=== PATIENT | male | born 1950 | race Caucasian/White ===

== ENCOUNTER 2021-11-03 06:51 | Emergency (ER) | payer MEDICARE, BC, SELFPAY ==
--- NOTE | ~2021-11-03 | CT_ITS ---
EXAMINATION: CT CHEST WITHOUT CONTRAST CLINICAL INFORMATION: Right posterior rib pain COMPARISON: CTA chest 09/11/2019 TECHNIQUE: Multidetector volumetric CT imaging of the chest was done. Axial MIP volume rendering provided. Sagittal and coronal reformatted images were obtained. This CT examination was performed using dose optimization techniques as appropriate, variously including the following: *Automated exposure control *Adjustment of mA and/or kV according to patient size (this includes techniques or standardized protocols for targeted exams where dose is matched to indication/reason for exam; i.e. extremities or head) *Use of iterative reconstruction technique DLP: 449 mGy-cm FINDINGS: The heart is normal in size. Coronary artery calcifications are present. There is no pericardial effusion. Normal caliber thoracic aorta. Scattered prominent but nonpathologically enlarged mediastinal lymph nodes appear unchanged. No enlarged axillary lymph nodes. Central airways are patent. Lungs are adequately aerated. Some mild subpleural linear opacities posteriorly within the right upper and lower lobes are nonspecific but most suggestive of atelectasis versus scarring. There is some minimal posterior pleural thickening on the right although no pleural effusion is identified. There is no pneumothorax present. No suspicious pulmonary masses. Visualized portion of the upper abdomen demonstrate diffusely decreased liver attenuation. Moderate diffuse degenerative changes of the spine. No acute rib fracture identified. CT/CT chest wo con IMPRESSION: -No rib fracture. -Atelectasis versus scarring within the posterior right hemithorax without lobar consolidation, pleural effusion or pneumothorax. -Diffusely decreased liver attenuation suggesting hepatic steatosis. Correlation with liver enzymes recommended. Fleischner guidelines were followed.
[2021-11-03 06:55] VITALS: BP 172/100; PULSE 58; RESP 18; TEMP 37; O2SAT 96; BMI 41.9
--- NOTE | 2021-11-03 07:19 | ED_ITS ---
HPI - Back Pain/Injury General Chief Complaint: Back Pain/Injury Stated Complaint: back pain Time Seen by Provider: 11/03/21 07:07 Source: patient Mode of arrival: ambulatory Limitations: no limitations History of Present Illness MD elicited complaint: other (R posterior rib pain) Onset (ago): week(s) (2) Timing: progressively worsening Severity: severe Similar Symptoms Previously: No Quality: sharp Location: thoracic spine (not spine R posterior lateral ribs) Radiation: none Exacerbating factors: movement, coughing/sneezing and lifting Relieving factors: none Context: while lifting (heavy glass blower felt a pop in his ribs) Associated symptoms: denies other symptoms Treatments prior to arrival: other (went to urgent care center started on 2 red pills ?naprosyn and has been taking motrin without relief, has not had imaging, cannot tolerate pain any longer) Work related injury: No Related Data Previous Rx's Medication Instructions Recorded cyclobenzaprine 10 mg tablet 10 mg PO TID PRN #14 tab 11/03/21 hydrocodone 5 mg-acetaminophen 325 1 tab PO Q6H PRN #12 tab 11/03/21 mg tablet lidocaine 5 % topical kit (Lidopac) 1 appl TOPICAL DAILY PRN #1 ea 11/03/21 Allergies Allergy/AdvReac Type Severity Reaction Status Date / Time No Known Allergies Allergy Unverified 06/16/20 18:42 Review of Systems Verdana 4l Review of Systems: Verdana 4d Verdana 4d Constitutional : No Weight loss, No Fever, No Chills ENT/Mouth : No sore throat, No Rhinorrhea Eyes: No Eye Pain, No Swelling Cardiovascular : pos Chest wall Pain, pos no shortness of breath Respiratory : No Cough, No Sputum GastrointestinalGastrointestinal : no Nausea, No Vomiting, No Diarrhea, No abdominal Pain, No Hematochezia, No Melena Genitourinary : No Dysuria, No Urinary Frequency Musculoskeletal : No joint pain, No Myalgias, No Joint Swelling Skin : No Skin Lesions, No rash Neuro : No Weakness, No Numbness, No Dizziness, No Headache Psych : No Anxiety/Panic, No Depression Heme/Lymph: No Bruising, No Lymphadenopathy Endocrine : No Polyuria, No Polydipsia All other systems reviewed and are negative PMFSH Past Medical History Attestation statement: The following information was validated with the patient. Medical History HTN (hypertension) Rheumatoid arthritis Surgical History (Updated 11/03/21 @ 06:59 by Deb Bauer) History of foot surgery Stented coronary artery Social History Social History (Updated 11/03/21 @ 07:35 by Airam Rapp DO) Patient Tobacco Use Status: Current everyday Tobacco user Smoked in Last 30 Days: Yes Use of substances other than those prescribed or required for medical reasons: No Advance Directives: Yes Advance Directives Information Provided: Yes Advance Directives on File: No Physical Exam Verdana 4l Vital Signs: Verdana 4d Verdana 4d Vital Signs: Verdana 4d Verdana 4Bd Last Vital Signs Verdana 4d Steam Conditioner Filling New 4d Steam Conditioner Filling New 4d Temp 98.3 F 11/03/21 07:36 Steam Conditioner Filling New 4d Pulse 59 11/03/21 07:36 Steam Conditioner Filling New 4d Resp 20 11/03/21 07:36 BP 175/92 H 11/03/21 07:36 Pulse Ox 97 11/03/21 07:36 BMI result Body Mass Index 41.9 Appearance: Alert. Oriented X3. No acute distress. Eyes: Pupils equal, round and reactive to light. ENT: Pharynx normal. Neck: Normal inspection. Neck supple. CVS: Normal heart rate and rhythm. Pulses normal. Chest: posterior lateral upper ribs moderate ttp no crepitus felt Respiratory: No respiratory distress. Breath sounds normal. Abdomen: Soft and nontender. Back: no midline ttp Skin: Skin warm and dry. Normal skin color. Normal skin turgor. Extremities: No lower extremity edema. No calf ttp Neuro: Oriented X 3. No motor deficit. No sensory deficit. Course Course Course Narrative: no acute fractures seen - stable for DC at this time MDM - Back Pain/Injury MDM Narrative Medical decision making narrative: 71 yo male with hx of RA on prednisone and methotrexate, HTN, here with R posterior rib pain for 2 weeks getting worse felt a pop in that area - it is not back pain he has no radicular symptoms. He is taking motrin without relief and has not had imaging. At this time we did discuss he should only use tylenol OTC since he is on plavix and aspirin at home - he is aware. Will obtain CT of his chest to r/o rib fractures given chronic steroid use from RA. I do not think rib films given body habitus will provide enough information - dispo per results and findings. Discharge Plan Discharge Clinical Impression: Strain of chest wall Qualifiers: Encounter type: initial encounter Qualified Code(s): S29.011A - Strain of muscle and tendon of front wall of thorax, initial encounter Patient Disposition: Home, Self-Care Instructions: Muscle Strain (ED), Chest Wall Pain (ED) Additional Instructions: return to ED for any worsening symptoms or concerns please follow up with your primary care doctor next week you should only be taking tylenol over the counter for pain no rib fractures seen on CT scan of your chest Prescriptions: New cyclobenzaprine 10 mg tablet 10 mg PO TID PRN (Reason: muscle spasm) Qty: 14 0RF Lidopac 5 % kit 1 appl topical DAILY PRN (Reason: pain) Qty: 1 0RF hydrocodone-acetaminophen 5-325 mg tablet 1 tab PO Q6H PRN (Reason: pain) Qty: 12 0RF Referrals: Kaleb Oneal MD [Primary Care Provider] - 3 days
[2021-11-03 07:36] VITALS: BP 175/92; PULSE 59; RESP 20; TEMP 36.8; O2SAT 97
[2021-11-03] MEDS: Lidocaine 4 % Patch ADH..PATCH 1 PATCH TRANSDERMA (08:19)
== END 2021-11-03 10:17 | disposition home or self-care (01) ==
PROVIDERS: Emergency Provider Emergency Medicine; PCP Internal Medicine
DX: S29.011A Strain of muscle and tendon of front wall of thorax, initial encounter (principal); X50.9XXA Other and unspecified overexertion or strenuous movements or postures, initial encounter; Y93.29 Activity, other involving ice and snow; Y92.014 Private driveway to single-family (private) house as the place of occurrence of the external cause; Y99.9 Unspecified external cause status
CPT/HCPCS: 71250; 99284

== ENCOUNTER 2022-02-18 07:47 | Emergency (ER) | payer MEDICARE, BC, SELFPAY ==
--- NOTE | ~2022-02-18 | XR_ITS ---
EXAMINATION: XR LUMBOSACRAL SPINE CLINICAL INFORMATION: 3 weeks of ongoing pain. COMPARISON: None TECHNIQUE: Three views of the lumbosacral spine. FINDINGS: There are 5 nonrib-bearing lumbar vertebrae present. Grade 1 anterolisthesis of L4 over L5. Moderate multilevel degenerative spondylosis related changes are noted throughout the entire lumbar spine. There is straightening of the lumbar spine is present. 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 Diffuse atherosclerotic disease of the aorta and is branches. XR/XR lumbar spine 2-3V IMPRESSION: Grade 1 anterolisthesis of L4 over L5 and moderate multilevel degenerative spondylosis. Mild platyspondylia. Diffuse atherosclerotic disease of the aorta and is branches.
[2022-02-18 08:13] VITALS: BP 166/95; PULSE 66; RESP 20; TEMP 36.6; O2SAT 97; BMI 39.5
--- NOTE | 2022-02-18 10:51 | ED.GENADULT ---
HPI - General Adult General Chief complaint: Extremity Problem Stated complaint: Lower back pain/leg pain Time Seen by Provider: 02/18/22 08:52 Source: patient Mode of arrival: ambulatory Limitations: no limitations History of Present Illness HPI narrative: 71-year-old male with history of sciatica and Rheumatoid Arhtriitis presents to ED for sciatica exacerbation. Patient states left-sided back pain radiating down left leg for the past 3 weeks. Patient denies any recent trauma, any urinary/bowel incontinence, fever, chills, nausea, vomiting, abdominal pain, dysuria, hematuria, testicular pain, or flank pain. Patient states only taking Tylenol for pain. Related Data Previous Rx's Medication Instructions Recorded cyclobenzaprine 10 mg tablet 10 mg PO TID PRN #14 tab 11/03/21 hydrocodone 5 mg-acetaminophen 325 1 tab PO Q6H PRN #12 tab 11/03/21 mg tablet lidocaine 5 % topical kit (Lidopac) 1 appl TOPICAL DAILY PRN #1 ea 11/03/21 cyclobenzaprine 10 mg tablet 10 mg PO TID PRN 7 Days #21 tab 02/18/22 oxycodone 5 mg capsule 5 mg PO TID PRN 3 Days #9 cap 02/18/22 prednisone 20 mg tablet 40 mg PO DAILY 5 Days #10 tab 02/18/22 Allergies Allergy/AdvReac Type Severity Reaction Status Date / Time No Known Allergies Allergy Verified 02/18/22 08:15 Review of Systems Review of Systems: Left-sided back pain radiating down left leg Yes all other systems are reviewed and are negative ON LICENSE OF [facility] Past Medical History Medical History HTN (hypertension) Rheumatoid arthritis Surgical History (Updated 11/03/21 @ 06:59 by Deb Bauer) History of foot surgery Stented coronary artery Social History Social History (Updated 11/03/21 @ 07:35 by Airam Rapp DO) Patient Tobacco Use Status: Current everyday Tobacco user Advance Directives: No Advance Directives Information Provided: No Physical Exam ED Vital Signs: Vital Signs - 24 hr 02/18/22 08:13 Temperature 97.8 F Pulse Rate 66 Respiratory Rate 20 Blood Pressure 166/95 H Pulse Oximetry 97 BMI result Body Mass Index 39.5 Const General: cooperative, healthy appearing, comfortable, no acute distress, well developed, alert, awake and Physically active Orientation/consciousness: patient oriented x3 [facility] Head: Yes normal to inspection, Yes No palpable skull fracture present, Yes normocephalic, Yes atraumatic and No abrasion Eyes General: appearance normal, both eyes and all related structures Neck Neck: Yes normal visual inspection, Yes full ROM, Yes no lymphadenopathy, Yes no meningeal signs, Yes trachea midline, Yes supple, No anterior neck swelling and No tender Chest Chest palpation & inspection: normal inspection of the chest and normal palpation of entire chest wall Resp Effort & Inspection: normal respiratory effort and able to speak in complete sentences Auscultation: clear to auscultation bilaterally Cardio Jugular venous distension: no JVD Heart sounds: S1 normal heart sound present and S2 normal heart sound present GI Inspection: Yes normal to inspection and No abdominal wall ecchymosis Palpation (GI): Soft to palpation, not firm, nontender, no guarding and not rigid General: No CVA tenderness and Yes no CVA tenderness Back/Spine/Pelvis Back: no CVA tenderness, No CVA tenderness and No back tenderness Back/spine/pelvis image: 1. Positive for left gluteal/sciatica tenderness on palpation. Negative for any mass, erythema, ecchymosis, or deformity. Skin General skin exam: no rashes or lesions noted and elasticity normal Neuro General: patient oriented x3, gait normal, tone normal, no meningeal signs and CN's II-XI intact bilaterally Cranial nerves: Yes CN's II-XII intact bilaterally Extrem Other: Lower extremities negative for swelling, pitting edema, or calf tenderness General: Yes normal to inspection and Yes full ROM Psych Appearance: grossly normal, well kempt and not disheveled Course Course Course Narrative: Patient sent for lumbar x-ray. Reevaluation(s) Reevaluation #1: Lumbar x-ray shows lumbar radiculopathy. Negative for any fractures. Not suspecting any cauda equine a or epidural abscess. Patient given Toradol. Patient will be discharged with narcotics, muscle relaxer, and steroid. Time: 23:00 Medical Decision Making [facility] Narrative Medical decision making narrative: Lumbar radiculopathy. Sciatica exacerbation. Discharge Plan Discharge Clinical Impression: Left lumbar radiculopathy Patient Disposition: Home, Self-Care Instructions: Sciatica (ED), Lumbar Radiculopathy (ED) Additional Instructions: Your x-ray shows lumbar degenerative arthritis. Symptoms also due to sciatica. He will be discharged with pain medication, muscle relaxers, and steroids. Return to the ED for any urinary/bowel incontinence, abdominal pain, nausea, vomiting, flank pain, fever, chills, dysuria, hematuria, paralysis of lower extremities, or any other concerning symptoms. Please follow-up with your primary care provider Prescriptions: New prednisone 20 mg tablet 40 mg PO DAILY 5 Days Qty: 10 0RF oxycodone 5 mg capsule 5 mg PO TID PRN (Reason: pain) 3 Days Qty: 9 0RF Rx Instructions: side effect is drowsiness. Do not take at work or while driving. Do not take with muscle relaxers. cyclobenzaprine 10 mg tablet 10 mg PO TID PRN (Reason: muscle spasm) 7 Days Qty: 21 0RF Rx Instructions: side effect is drowsiness. Do not take at work or while driving. Do not take with oxycodone. No Action cyclobenzaprine 10 mg tablet 10 mg PO TID PRN (Reason: muscle spasm) Qty: 14 0RF Lidopac 5 % kit 1 appl topical DAILY PRN (Reason: pain) Qty: 1 0RF hydrocodone-acetaminophen 5-325 mg tablet 1 tab PO Q6H PRN (Reason: pain) Qty: 12 0RF Interventions: ED Discharge Assessment Last Done: 02/18/22 11:26 Discharge Date/Time: 02/18/22 11:27 Print Language: Moldovan
[2022-02-18] MEDS: Ketorolac Tromethamine 30 MG/ML VIAL IM (10:58)
== END 2022-02-18 11:27 | disposition home or self-care (01) ==
PROVIDERS: Emergency Provider Emergency Medicine; PCP Internal Medicine
DX: M54.16 Radiculopathy, lumbar region (principal); M54.30 Sciatica, unspecified side; M06.9 Rheumatoid arthritis, unspecified; I10 Essential (primary) hypertension
CPT/HCPCS: 72100; 96372; 99282; 99284; J1885

== ENCOUNTER 2022-08-22 16:35 | Emergency (ER) | payer MEDICARE, BC, SELFPAY ==
--- NOTE | ~2022-08-22 | XR_ITS ---
EXAMINATION: XR KNEE, RIGHT CLINICAL INFORMATION: Pain COMPARISON: None TECHNIQUE: Four views of the right knee. FINDINGS: No acute fracture or dislocation. Tricompartmental marginal osteophytes. Moderate medial tibiofemoral compartment joint space narrowing, with accompanying subchondral sclerosis. Small knee joint effusion. XR/XR knee RT 2V IMPRESSION: * No acute fracture or dislocation. * Tricompartmental degenerative changes, worst within the medial tibiofemoral compartment.
--- NOTE | ~2022-08-22 | US_ITS ---
EXAMINATION: US VENOUS ULTRASOUND WITH DOPPLER LOWER EXTREMITY, RIGHT CLINICAL INFORMATION: Calf pain with question of DVT COMPARISON: None TECHNIQUE: Ultrasound of the deep veins is performed from the hip to the calf with compression sonography and color and pulse Doppler assessment. Spectral analysis with color-flow imaging is performed. FINDINGS: There is normal venous compression and respiratory variation and augmented flow. The visualized common femoral vein, superficial femoral vein, profunda femoral vein, popliteal vein, and the trifurcation region shows no evidence of deep venous thrombosis. There is no significant popliteal fossa cyst. If the patient's symptoms persist, followup ultrasound in 5 days 7 days might be of value to exclude proximal propagation from a non-visualized calf vein. US/US venous duplex LE RT IMPRESSION: No DVT demonstrated in the right lower extremity.
[2022-08-22 16:47] VITALS: BP 177/99; PULSE 75; RESP 16; TEMP 36.6; O2SAT 97; BMI 40.3
--- NOTE | 2022-08-22 16:57 | ED.LOWEXIN ---
HPI - Extremity Injury (Lower) General Chief Complaint: Extremity Injury, Lower Stated Complaint: rheumatoid arthritis Time Seen by Provider: 08/22/22 16:47 Source: patient Mode of arrival: ambulatory Limitations: no limitations History of Present Illness HPI Narrative: A 72-year-old male came in for evaluation of right knee and right leg pain started this morning. Patient was trying to get out of bed when started to have a severe pain in the right knee and right leg, patient was not able to get out of bed then, then the pain has improved gradually to as the day wears on, 2 weeks ago patient felt a pop in his right knee as he was walking but gradually getting better, declined any lower extremity swelling, no history of DVT, no recent travel, no recent prolonged immobilization. Patient with history of rheumatoid arthritis taking Humira and methotrexate. Patient had similar presentation in the past improved by taking the steroid. Related Data Previous Rx's Medication Instructions Recorded cyclobenzaprine 10 mg tablet 10 mg PO TID PRN muscle spasm #14 11/03/21 tabs hydrocodone 5 mg-acetaminophen 325 1 tab PO Q6H PRN pain #12 tabs 11/03/21 mg tablet lidocaine 5 % topical kit (Lidopac) 1 appl topical DAILY PRN pain #1 ea 11/03/21 cyclobenzaprine 10 mg tablet 10 mg PO TID PRN muscle spasm 7 02/18/22 days #21 tabs oxycodone 5 mg capsule 5 mg PO TID PRN pain 3 days #9 caps 02/18/22 prednisone 20 mg tablet 40 mg PO DAILY 5 days #10 tabs 02/18/22 prednisone 20 mg tablet 20 mg PO BID #10 tabs 08/22/22 Allergies Allergy/AdvReac Type Severity Reaction Status Date / Time No Known Allergies Allergy Verified 02/18/22 08:15 Review of Systems Review of Systems: All other systems are reviewed and are negative Constitutional: Reports as per HPI and Reports no additional constitutional complaints Eyes: Reports as per HPI and Reports no additional eye complaints Reports system reviewed and no additional complaints, except as documented Cardiovascular: Reports as per HPI and Reports no additional cardiovascular complaints Respiratory: Reports as per HPI and Reports no additional respiratory complaints Gastrointestinal: Reports as per HPI and Reports no additional gastrointestinal complaints Genitourinary: Reports no additional female genitourinary complaints Musculoskeletal: Reports no additional musculoskeletal complaints Skin/Breast: Reports system reviewed and no additional complaints, except as docu Psychiatric: Reports no additional psychiatric complaints Endocrine: Reports no additional endocrine complaints Hematologic/Lymphatic: Reports no additional hematologic/lymphatic complaints Allergic/Immunologic: Reports no additional allergic/immunologic complaints Reports system reviewed and no additional complaints, except as documented and Reports Abnormal speech present [facility] Past Medical History Medical History HTN (hypertension) Rheumatoid arthritis Surgical History History of foot surgery Stented coronary artery Social History Social History Patient Tobacco Use Status: Current everyday Tobacco user Advance Directives: No Advance Directives Information Provided: Yes Physical Exam Vital Signs: Vital Signs: Last Vital Signs Temp 97.9 F 08/22/22 16:47 Pulse 75 08/22/22 16:47 Resp 16 08/22/22 16:47 BP 177/99 H 08/22/22 16:47 Pulse Ox 97 08/22/22 16:47 O2 Del Method 08/22/22 16:47 BMI result Body Mass Index 40.3 Vital signs have been reviewed as appeared to be correct. Blood pressure normal. Heart rate normal. Respiration rate normal. Temperature normal. Oxygen saturation normal. Appearance: Alert. Oriented X3. No acute distress. Head: Normal external exam. Normocephalic. Atraumatic. No Munoz signs noted. No raccoon eyes noted Eyes: PERRLA. EOMI. Conjunctiva and sclera normal. Eyelids normal. ENT: TM's Normal. Pharynx normal. Uvula midline. Moist mucous membranes. No trismus noted. No drooling noted. No muffled voice noted. Neck: Normal inspection. Neck supple. FROM. No adenopathy. Thyroid Normal. No meningeal signs. No neck mass noted. CVS: Normal heart rate and rhythm. Heart sound normal. No murmurs noted. Pulses normal throughout. Respiratory: No respiratory distress. Painless inspiration. Breath sounds normal. No wheezes/rales/rhonchi noted. Chest nontender. No accessory muscle usage noted or decreased air movement noted. Abdomen: Soft and nontender. Bowel sounds normal in all 4 quadrants. No distention noted. No organomegaly noted. No visible injury noted. Back: No CVA tenderness. Full range of motion noted. Skin: Skin warm and dry. Normal skin color. Normal skin turgor. No rashes/lesions/lacerations noted. Extremities: No lower extremity edema. Extremities exhibit normal range of motion. Extremities nontender. Neuro: Oriented X 3. Cranial nerve exam: II-XII are grossly intact No motor deficit. No sensory deficit. Reflexes normal. Course Course Course Narrative: Right lower extremities pain due to likely acute on chronic arthritis patient reportedly improved with the steroid in the past will start him on short course of low-dose of steroid. Medications Administered Discontinued Medications Generic Name Dose Route Start Last Admin Trade Name Freq PRN Reason Stop Dose Admin Prednisone 40 mg 08/22/22 16:57 08/22/22 17:28 Prednisone 20 Mg Tablet PO 08/22/22 16:58 40 mg ONCE ONE Administration MDM - Extremity Injury (Lower) Imaging Data Right knee x-ray: Attestation: I personally reviewed and interpreted this imaging study as follows: Radiologist's impression: *? No acute fracture or dislocation. *? Tricompartmental degenerative changes, worst within the medial tibiofemoral compartment. ? Right lower extremities venous ultrasound: Attestation: I personally reviewed and interpreted this imaging study as follows: Radiologist's impression: No DVT Discharge Plan Discharge Clinical Impression: Acute leg pain, Flare of rheumatoid arthritis Patient Disposition: Home, Self-Care Instructions: Leg Pain (ED) Prescriptions: New prednisone 20 mg tablet 20 mg PO BID Qty: 10 0RF No Action cyclobenzaprine 10 mg tablet 10 mg PO TID PRN (Reason: muscle spasm) Qty: 14 0RF Lidopac 5 % kit 1 appl topical DAILY PRN (Reason: pain) Qty: 1 0RF hydrocodone-acetaminophen 5-325 mg tablet 1 tab PO Q6H PRN (Reason: pain) Qty: 12 0RF prednisone 20 mg tablet 40 mg PO DAILY 5 Days Qty: 10 0RF oxycodone 5 mg capsule 5 mg PO TID PRN (Reason: pain) 3 Days Qty: 9 0RF Rx Instructions: side effect is drowsiness. Do not take at work or while driving. Do not take with muscle relaxers. cyclobenzaprine 10 mg tablet 10 mg PO TID PRN (Reason: muscle spasm) 7 Days Qty: 21 0RF Rx Instructions: side effect is drowsiness. Do not take at work or while driving. Do not take with oxycodone. Referrals: Physician,Unknown J [Primary Care Provider] -
--- OUTSIDE RECORDS SUMMARY | 2022-08-22 17:03 | XMS_ITS | Continuity of Care Document ---
:1950 Author Organization [facility] Address [address] [place] [address]- Care Team Providers Name Role Phone Kaleb Oneal MD Primary Care Physician [place] [facility] [place] 10/04/[address] [address]- Encounter Diagnosis Pneumonia (Final) - 09/29/20 Pneumonia (Final) - 09/30/20 Discharge Disposition: A-D/C AMA Attending Physician: Yajaira Dorantes MD Admitting Physician: Kayla Dover MD Referring Physician: Not on Staff, Referring MD Allergies, Adverse Reactions, Alerts Substance Reaction Severity Status NKA Active Medications aspirin 81 mg oral delayed release tablet 81 mg, By Mouth, Daily, # 30 tablet, Refills 0, Tot. Refills 0, Maintenance, 06/14/20 15:37:00 EDT, Route to Pharmacy Electronically, [facility], 168, cm, 06/14/20 13:45:00 EDT, Height, 108, kg, 06/12/20 0:47:00 EDT, Dry Weight Start Date: 06/14/20 Status: Orderedfolic acid 1 mg oral tablet 1 mg, 1, tablet, By Mouth, Daily, # 30 tablet, Refills 0, Maintenance, 09/30/19 7:29:00 EST Start Date: 09/30/19 Status: OrderedHumira Pen 40 mg/0.8 mL subcutaneous solution 0 Refills, Maintenance, 09/30/19 7:29:00 EST Start Date: 09/30/19 Status: OrderedlevoFLOXacin 750 mg oral tablet 1 tablet = 750 mg, By Mouth, Every 24 hours, for 7 days, # 7 tablet, 0 Refills, Acute 10/11/20 11:07:00 EST, 10/04/20 11:07:00 EST, Tablet, [facility], Partial fill upon patient request if the prescription is for a schedule II opioid butch... Start Date: 10/04/20 Stop Date: 10/11/20 Status: OrderedLipitor 80 mg oral tablet 1 tablet = 80 mg, By Mouth, Daily at bedtime, # 30 tablet, 0 Refills, Maintenance, 06/14/20 15:37:00EDT, Tablet, [facility], 168, cm, 06/14/20 13:45:00 EDT, Height, 108, kg, 06/12/20 0:47:00 EDT, Dry Weight Start Date: 06/14/20 Status: Orderedmethotrexate 2.5 mg oral tablet 6 tablet = 15 mg, By Mouth, Every 7 days, 0 Refills, Maintenance, 09/30/19 7:28:00 EST Start Date: 09/30/19 Status: Orderedmetoprolol 50 mg oral tablet, extended release 50 mg, 1, tablet, By Mouth, Daily, # 30 tablet, Refills 0, Tot. Refills 0, Maintenance, 06/14/20 15:37:00 EDT, Route to Pharmacy Electronically, [facility], 168, cm, 06/14/20 13:45:00 EDT, Height, 108, kg, 06/12/20 0:47:00 EDT, Dry Weight Start Date: 06/14/20 Status: Orderedmetoprolol 50 mg oral tablet, extended release 50 mg, XL Tablet, By Mouth, 10/04/20 9:00:00 EST Start Date: 10/04/20 Stop Date: 10/04/20 Status: Completedomeprazole 20 mg oral enteric coated capsule 1 capsule = 20 mg, By Mouth, Daily, # 30 capsule, 0 Refills, Maintenance, 09/30/19 7:29:00 EST, EC Capsule Start Date: 09/30/19 Status: Orderedticagrelor 90 mg oral tablet 1 tablet = 90 mg, By Mouth, 2 times a day, # 60 tablet, 0 Refills, Maintenance, 06/14/20 15:37:00 EDT, Tablet, [facility], 168, cm, 06/14/20 13:45:00 EDT, Height, 108, kg, 06/12/20 0:47:00 EDT, Dry Weight Start Date: 06/14/20 Status: OrderedTylenol 325 mg oral tablet 975 mg, 3, tablet, By Mouth, 3 times a day, PRN, Temperature Greater than 100.5, Refills 0, Maintenance, as needed for fever, 10/04/20 11:13:00 EST, Partial fill upon patient request if the prescription is for a schedule II opioid drug. 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 GERD (gastroesophageal reflux Active disease)(Confirmed) Hyperlipidemia(Confirmed) Active Hypertension(Confirmed) Active Rheumatoid arthritis(Confirmed) Active Results Orders for Microbiology Reports Name Date Sputum Culture w/ Gram Smear 10/02/20 Blood Culture 09/29/20 Blood Culture #2 09/29/20 Microbiology Reports TEST:Sputum Culture STATUS:Auth (Verified) BODY SITE: SOURCE:EXPECT COLLECTED DATE/TIME:10/02/20 12:15 AMSputum Culture SPECIMEN DESCRIPTION : EXPECTORATED SPUTUM SPECIAL REQUESTS : NONE GRAM STAIN : 4+ POLYMORPHONUCLEAR LEUKOCYTES 1+ SQ.EPITHELIAL CELLS 3+ GRAM POSITIVE RODS 1+ GRAM POSITIVE COCCI CULTURE : 3+ NORMAL TANIA REPORT STATUS : FINAL 10/04/2020TEST:Blood Culture STATUS:Auth (Verified) BODY SITE: SOURCE:Blood COLLECTED DATE/TIME:09/29/20 4:36 PMBlood Culture SPECIMEN DESCRIPTION : BLOOD LAC SPECIAL REQUESTS : NONE CULTURE : NO GROWTH 5 DAYS. REPORT STATUS : FINAL 10/04/2020TEST:Blood Culture, Second Order STATUS:Auth (Verified) BODY SITE: SOURCE:Blood COLLECTED DATE/TIME:09/29/20 4:36 PMBlood Culture, Second Order SPECIMEN DESCRIPTION : BLOOD RAC SPECIAL REQUESTS : NONE CULTURE : NO GROWTH 5 DAYS. REPORT STATUS : FINAL 1Radiology Reports Exam Date Time Procedure Performing Provider Status 10/03/20 3:12 AM Ribs W/ PA Chest Left Hope Reed; Auth ( Verified) Notes:(Ribs W/ PA Chest Left) Reason For Exam: PainRESULT: Ribs W/ PA Chest Left Ribs W/ PA Chest Left Reason: Pain; Clinical Question(s): Fracture; Order Comment: Pt felt pop and heard pop with coughing, r o rib fx's COMPARISON: Multiple prior chest x-rays most recent 09/29/2020. FINDINGS: PA chest x-ray, 3 views of the left ribs. LINES AND TUBES: None. LUNGS AND PLEURA: Diminished lung volumes with developing consolidative opacity in the posterior right lower lung field. Left lung remains relatively clear. No effusion or pneumothorax. HEART, MEDIASTINUM AND RIYA: Heart remains mildly enlarged. BONES: No fractures or bone lesions. SOFT TISSUES: Normal. IMPRESSION: No acute fracture identified. Right lower lobe infiltrate versus atelectasis. WSN: [id number] Ordering Physician: Sinai Merlos Dictated By: Fady Roger MD Dictated Date/Time: 10/03/20 8:22 am Reviewed By: Fady Roger MD Signed By: Fady Roger MD Signed Date/Time: 10/03/20 8:22 am Transcribed By: THERON Transcribed Date/Time: 10/03/20 8:20 am Exam Date Time Procedure Performing Provider Status 09/29/20 4:27 PM Chest Portable Sandy Madera; Auth (Verifi ed) Notes:(Chest Portable) Reason For Exam: Shortness of BreathRESULT: Chest Portable Chest Portable HX OF PRESENT ILLNESS: pt complaining of fever, chills, and SOB x4 days Reason: Shortness of Breath Clinical Question(s): CHF COMPARISON: 06/11/2020 FINDINGS: LINES AND TUBES: None. LUNGS AND PLEURA: New hazy airspace opacity in the lateral left lower lung. Low lung volumes with mild basilar atelectasis. No pleural effusion. No pneumothorax. HEART, MEDIASTINUM AND RIYA: Heart is normal in size. Normal upper mediastinal and hilar contour. BONES AND SOFT TISSUES: No acute abnormality. IMPRESSION: New left lower lung airspace opacity is concerning for pneumonia. I have personally reviewed the images and I agree with this report. WSN: [id number] Ordering Physician: Neo Mott Dictated By: Salomon Gonsalez DO Dictated Date/Time: 09/29/20 4:39 pm Reviewed By: Yossi Barlow MD Signed By: Yossi Barlow MD Signed Date/Time: 09/29/20 4:44 pm Transcribed By: THERON Transcribed Date/Time: 09/29/20 4:36 pm Vital Signs Most recent to oldest [Reference 1 2 3 Range]: Height 167.64 cm 167.64 cm 167.64 cm (10/04/20 9:53 AM) (10/04/20 3:44 AM) (10/03/20 8:18 P M) Oxygen Saturation [94-100 %] 96 % 94 % 100 % (10/04/20 9:53 AM) (10/04/20 3:44 AM) (10/03/20 8:18 P M) Pulse Rate [55-90 bpm] 102 bpm 102 bpm 87 bpm *H* *H* (10/04/20 3:44 AM) (10/04/20 9:53 AM) (10/04/20 8:20 AM) Blood Pressure [90-138/55-84 mm 142/82 mm Hg 142/80 mm Hg 143/82 mm Hg Hg] *H* *H* *H* (10/04/20 9:53 AM) (10/04/20 8:20 AM) (10/04/20 8:20 A M) Respiratory Rate [16-30 br/min] 20 br/min 16 br/min 23 br/min (10/04/20 9:53 AM) (10/04/20 9:20 AM) (10/04/20 3:44 A M) Temperature [96.8-100.4 DegF] 99.2 DegF 99.1 DegF 98 .9 DegF (10/04/20 9:53 AM) (10/04/20 3:44 AM) (10/03/20 8:18 P M) Liters per Minute 2 L/min 2 L/min 2 L/min (10/04/20 3:44 AM) (10/03/20 8:18 PM) (10/03/20 1:00 A M) Mode of Delivery (Oxygen) Room air Nasal cannula Nasal cannula (10/04/20 9:53 AM) (10/04/20 3:44 AM) (10/03/20 8:18 P M) Blood pressure sites Arm, right Arm, right Arm, right (10/04/20 9:53 AM) (10/04/20 3:44 AM) (10/03/20 8:18 P M) Temperature Route Axillary Oral Oral (10/04/20 9:53 AM) (10/04/20 3:44 AM) (10/03/20 8:18 P M) Social History Social History Type Response Smoking Status 10 or more cigarettes (1/2 p ack or more)/day in last 30 days; Tobacco user in household: Yes; Other: He was able to quit smoking for 2 times ( 3 months, 5-10 years). Most recently stopped Sep to November.; entered on: 06/12/20 Sex
--- OUTSIDE RECORDS SUMMARY | 2022-08-22 17:04 | XMS_ITS | Continuity of Care Document ---
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 Refills 0, Maintenance, 06/14/20 15:37:00 EDT, Route to Pharmacy Electronically, [facility], 168, cm, 06/14/20 13:45:00 EDT, Height, 108, kg, 06/12/20 0:47:00 EDT, Dry Weight Start Date: 06/14/20 Status: Orderedfolic acid 1 mg oral tablet 1 mg, 1, tablet, By Mouth, Daily, # 30 tablet, Refills 0, Maintenance, 09/30/19 7:29:00 EST Start Date: 09/30/19 Status: OrderedHumira Pen 40 mg/0.8 mL subcutaneous solution 0 Refills, Maintenance, 09/30/19 7:29:00 EST Start Date: 09/30/19 Status: OrderedLipitor 80 mg oral tablet 1 tablet = 80 mg, By Mouth, Daily at bedtime, # 30 tablet, 0 Refills, Maintenance, 06/14/20 15:37:00EDT, Tablet, [facility], 168, cm, 06/14/20 13:45:00 EDT, [...] 06/14/20 15:37:00 EDT, Route to Pharmacy Electronically, [facility], 168, cm, 06/14/20 13:45:00 EDT, Height, 108, kg, 06/12/20 0:47:00 EDT, Dry Weight Start Date: 06/14/20 Status: Orderedomeprazole 20 mg oral enteric coated capsule 1 capsule = 20 mg, By Mouth, Daily, # 30 capsule, 0 Refills, Maintenance, 09/30/19 7:29:00 EST, EC Capsule Start Date: 09/30/19 Status: Orderedticagrelor 90 mg oral tablet 1 tablet = 90 mg, By Mouth, 2 times a day, # 60 tablet, 0 Refills, Maintenance, 06/14/20 15:37:00 EDT, Tablet, [facility], 168, cm, 06/14/20 13:45:00 EDT, Height, 108, kg, 06/12/20 0:47:00 EDT, Dry Weight Start Date: 06/14/20 Status: Orderedvalsartan 160 mg oral tablet TAKE 1 AND 1/2 TABLETS DAILY BY MOUTH Start Date: 06/12/20 Status: Ordered Problem List Diagnosis Diagnosis Type Effective Dates Health Status Clinical In formant Service Triple vessel Discharge 06/14/20 Non-Specified coronary artery Diagnosis disease AP (angina Discharge 06/14/20 Non-Specified pectoris) Diagnosis Results Radiology Reports Exam Date Time Procedure Performing Provider Status 06/11/20 9:34 PM Chest 2 Views Frontal and Lat Winnie Abebe; Lia (Verified) Notes:(Chest 2 Views Frontal and Lat) Reason For Exam: Chest Pain;Other:RESULT: Chest 2 Views Frontal and Lat Chest 2 Views Frontal and Lat Hx of Present Illness: chest pain x 1 week intermittent seen by PCP; Reason: Other:; Chest Pain; Clinical Question(s): CHF COMPARISON: 09/29/2019. FINDINGS: LINES AND TUBES: None. LUNGS AND PLEURA: Clear lungs. Normal pulmonary vascularity. Trace right pleural effusion. No left pleural effusion. No pneumothorax. HEART, MEDIASTINUM AND RIYA: Heart is normal in size. Aorta is somewhat tortuous. BONES AND SOFT TISSUES: No acute abnormality. IMPRESSION: Trace right pleural effusion. WSN: [id number] Ordering Physician: Robyn Mota Dictated By: David Gonsalez MD Dictated Date/Time: 06/11/20 9:39 pm Reviewed By: David Gonsalez MD Signed By: David Gonsalez MD Signed Date/Time: 06/11/20 9:39 pm Transcribed By: THERON Transcribed Date/Time: 06/11/20 9:38 pm Vital Signs Most recent to oldest 1 2 3 [Reference Range]: Height 168 cm 168 cm 168 cm (06/14/20 1:45 PM) (06/14/20 8:26 AM) (06/14/20 1:5 7 AM) Weight 110.3 kg 108 kg 108 kg (06/14/20 6:26 AM) (06/12/20 9:17 AM) (06/12/20 12: 47 AM) Oxygen Saturation 96 % 95 % 96 % [94-100 %] (06/14/20 1:45 PM) (06/14/20 8:26 AM) (06/14/20 1:5 7 AM) Pulse Rate [55-90 bpm] 66 bpm 63 bpm 63 bpm (06/14/20 1:45 PM) (06/14/20 10:18 AM) (06/14/20 8: 26 AM) Body Mass Index 38.27 [18.5-24.99] *>HHI* (06/12/20 12:47 AM) Blood Pressure 150/96 mm Hg 139/81 mm Hg 139/81 mm Hg [90-138/55-84 mm Hg] *H* *H* *H* (06/14/20 1:45 PM) (06/14/20 10:11 AM) (06/14/20 8: 26 AM) Respiratory Rate [16-30 19 br/min 21 br/min 16 br/mi n br/min] (06/14/20 1:45 PM) (06/14/20 8:26 AM) (06/14/20 1:5 7 AM) Temperature [96.8-100.4 97.8 DegF 97.9 DegF 97.4 Deg F DegF] (06/14/20 1:45 PM) (06/14/20 8:26 AM) (06/14/20 1:5 7 AM) Mode of Delivery Room air Room air Room air (Oxygen) (06/14/20 1:45 PM) (06/14/20 8:26 AM) (06/14/20 1:5 7 AM) Blood pressure sites Arm, left Arm, left Arm, left (06/14/20 1:45 PM) (06/14/20 8:26 AM) (06/14/20 1:5 7 AM) Temperature Route Temporal Temporal Temporal (06/14/20 1:45 PM) (06/14/20 8:26 AM) (06/14/20 1:5 7 AM) Dry Weight 108 kg (06/12/20 12:47 AM) Weight Obtained Via Bed scale Patient/family stated (06/14/20 6:26 AM) (06/12/20 12:47 AM) Dry Weight Obtained Via Patient/family stated (06/12/20 12:47 AM) Social History Social History Type Response Smoking Status 10 or more cigarettes (1/2 p ack or more)/day in last 30 days; Tobacco user in household: Yes; Other: He was able to quit smoking for 2 times ( 3 months, 5-10 years). Most recently stopped Sep to November.; entered on: 06/12/20 Sex
--- OUTSIDE RECORDS SUMMARY | 2022-08-22 17:04 | XMS_ITS | Continuity of Care Document ---
:1950 Author Organization [facility] Address [address] [place] [id number]- Care Team Providers Name Role Phone Kimmy CLARKE, Kaleb Primary Care Physician Encounter [facility] [place] Date(s): 09/29/19 - 10/02/[address] [address]- [facility] Encounter Diagnosis Pneumonia (Final) - 09/29/19 Hyponatremia (Final) - 09/29/19 Discharge Disposition: A-D/C Home Attending Physician: Prmio Elliott MD Admitting Physician: Cruz Mcdowell DO Referring Physician: Not on Staff, Referring MD Allergies, Adverse Reactions, Alerts Substance Reaction Severity Status NKA Active Medications Avelox 400 mg oral tablet 1 tablet = 400 mg, By Mouth, Daily, for 4 days, # 4 tablet, 0 Refills, Acute 10/06/19 10:45:00 EST, 10/02/19 10:45:00 EST, Tablet, [id number], 168, cm, 10/02/19 8:12:00 EST, Height, 103.4, kg, 09/30/19 22:43:00 EST, Dry Weight Start Date: 10/02/19 Stop Date: 10/06/19 Status: Orderedfolic acid 1 mg oral tablet 1 mg, 1, tablet, By Mouth, Daily, # 30 tablet, Refills 0, Maintenance, 09/30/19 7:29:00 EST Start Date: 09/30/19 Status: OrderedHumira Pen 40 mg/0.8 mL subcutaneous solution 0 Refills, Maintenance, 09/30/19 7:29:00 EST Start Date: 09/30/19 Status: Orderedmethotrexate 2.5 mg oral tablet 0 Refills, Maintenance, 09/30/19 7:28:00 EST Start Date: 09/30/19 Status: Orderedomeprazole 20 mg oral enteric coated capsule 1 capsule = 20 mg, By Mouth, Daily, # 30 capsule, 0 Refills, Maintenance, 09/30/19 7:29:00 EST, EC Capsule Start Date: 09/30/19 Status: Orderedoseltamivir 75 mg oral capsule 1 capsule = 75 mg, By Mouth, 2 times a day, for 3 days, # 6 capsule, 0 Refills, Acute 10/05/19 10:45:00 EST, 10/02/19 10:45:00 EST, Capsule, [id number], 168, cm, 10/02/19 8:12:00 EST, Height, 103.4, kg, 09/30/19 22:43:00 EST, Dry Weight Start Date: 10/02/19 Stop Date: 10/05/19 Status: Ordered Results Radiology Reports Exam Date Time Procedure Performing Provider Status 09/29/19 7:05 PM Chest Portable Melissa Tai; Lia (Edmond antonio) Notes:(Chest Portable) Reason For Exam: dyspnea;Other:RESULT: Chest Portable Chest Portable AP semiupright at 1843 hours Reason: Other:; dyspnea; Clinical Question(s): CHF COMPARISON: None. FINDINGS: LINES AND TUBES: None. LUNGS AND PLEURA: Low lung volumes. Mild interstitial prominence of the mid to lower lungs. Small right pleural effusion. No pneumothorax. HEART, MEDIASTINUM AND RIYA: Heart is normal in size. Aorta is mildly calcified. BONES AND SOFT TISSUES: No acute abnormality. IMPRESSION: Suspect mild pulmonary edema pattern with small right pleural effusion. WSN: [id number] Dictated By: César Sherwood DO Dictated Date/Time: 09/29/19 7:09 pm Reviewed By: César Sherwood DO Signed By: César Sherwood DO Signed Date/Time: 09/29/19 7:09 pm Transcribed By: THERON Transcribed Date/Time: 09/29/19 7:08 pm Vital Signs Most recent to oldest 1 2 3 [Reference Range]: Height 168 cm 168 cm 168 cm (10/02/19 8:12 AM) (10/01/19 8:21 PM) (10/01/19 8:20 A M) Weight 103.4 kg (09/30/19 6:42 PM) Oxygen Saturation [94-100 %] 96 % 96 % 96 % (10/02/19 8:12 AM) (10/01/19 8:21 PM) (10/01/19 8:20 A M) Pulse Rate [55-90 bpm] 62 bpm 72 bpm 87 bpm (10/02/19 8:12 AM) (10/01/19 8:21 PM) (10/01/19 8:20 A M) Body Mass Index [18.5-24.99] 36.64 *>HHI* (09/30/19 6:42 PM) Blood Pressure [90-138/55-84 124/89 mm Hg 104/69 mm Hg 118 /80 mm Hg mm Hg] (10/02/19 8:12 AM) (10/01/19 8:21 PM) (10/01/19 8:20 A M) Respiratory Rate [16-30 18 br/min 18 br/min 18 br/mi n br/min] (10/02/19 8:12 AM) (10/01/19 8:21 PM) (10/01/19 8:20 A M) Temperature [96.8-100.4 97.4 DegF 98.7 DegF 98.7 Deg F DegF] (10/02/19 8:12 AM) (10/01/19 8:21 PM) (10/01/19 8:20 A M) Liters per Minute 2 L/min 2 L/min 2 L/min (09/30/19 4:57 PM) (09/30/19 12:09 PM) (09/30/19 8:47 AM) Mode of Delivery (Oxygen) Room air Room air Room a ir (10/02/19 8:12 AM) (10/01/19 8:21 PM) (10/01/19 8:20 A M) Blood pressure sites Arm, left Arm, right Arm, left (10/02/19 8:12 AM) (10/01/19 8:21 PM) (10/01/19 8:20 A M) Temperature Route Oral Oral Oral (10/02/19 8:12 AM) (10/01/19 8:21 PM) (10/01/19 8:20 A M) Dry Weight 103.4 kg (09/30/19 6:42 PM) Sensory deficits Other: wears glasses (09/30/19 6:42 PM) Mobility assistance Independent (09/30/19 6:42 PM)
[2022-08-22] MEDS: predniSONE 20 MG TABLET 40 MG PO (17:28)
== END 2022-08-22 18:57 | disposition home or self-care (01) ==
PROVIDERS: Emergency Provider Emergency Medicine
DX: M06.9 Rheumatoid arthritis, unspecified (principal); M79.604 Pain in right leg; R60.0 Localized edema; Z79.899 Other long term (current) drug therapy
CPT/HCPCS: 73560; 93971; 99282; 99284

== ENCOUNTER 2024-05-12 14:28 | Emergency (ER) | payer MEDICARE, BC, SELFPAY ==
--- NOTE | ~2024-05-12 | CT_ITS ---
EXAMINATION: CT Chest, Abdomen, and Pelvis CLINICAL INFORMATION: Fall with right-sided chest and abdominal pain COMPARISON: None TECHNIQUE: Helical computed tomography was performed from the inferior neck through the pubic symphysis after administration of 85 mL of Omnipaque 350 intravenous contrast. Multiplanar reconstructions are available for interpretation. All CT exams at this location are performed using dose optimization techniques as appropriate to a performed exam including at least one of the following: * Automated exposure control * Adjustment of the mA and/or kV according to patient size (this includes techniques or standardized protocols for targeted exams where dose is matched to indication / reason for exam; i/e/ extremities or head) * Use of iterative reconstructive technique Total DLP is 1390 mGy*cm. FINDINGS: Lungs: Linear areas of atelectasis seen in the bilateral lung bases. No focal opacity. Pleura: Focal area of pleural thickening consistent with reactive changes along the right anterolateral chest wall There is no pleural effusion. There is no pneumothorax. Mediastinum/Mary: No mediastinal fluid or hematoma. Cardiovascular: The heart is globally normal in size. The thoracic aorta is normal in course and caliber. The main pulmonary artery is normal in caliber. There is no pericardial effusion or pericardial thickening. Coronary calcifications are present. Liver: Liver is decreased in density consistent with hepatic steatosis. No focal lesions. No evidence of acute traumatic injury Gallbladder and bile ducts: The gallbladder is normal. No intrahepatic or extrahepatic biliary ductal dilatation. Spleen: Normal in size and attenuation. Pancreas: Unremarkable. Adrenal glands: Unremarkable. Right kidney: The right kidney is normal. There is no hydronephrosis or hydroureter. Left kidney: The left kidney is normal. There is no hydronephrosis or hydroureter. Lymph nodes: There is no lymphadenopathy in the abdomen or pelvis. Gastrointestinal tract: The stomach, small, and large bowel are normal in course and caliber. The appendix is identified and is within normal limits. Diverticula seen within the sigmoid colon without evidence of acute diverticulitis Urinary bladder: The bladder is normal. Pelvic organs: The prostate is unremarkable. Vasculature: The abdominal aorta is normal in course and caliber. Diffuse atherosclerotic wall calcifications seen in the abdominal aorta and iliac arteries. Additional findings: There is no intraperitoneal free air or fluid. Soft tissues: Unremarkable. Osseous structures: Acute nondisplaced fractures are seen along the right anterolateral fourth, fifth, sixth, seventh and eighth ribs. No acute fractures in the abdomen and pelvis. Degenerative disc disease seen in the thoracic and lumbar spine. CT/CT abdomen pelvis w IV con IMPRESSION: 1. Acute nondisplaced fractures of the right anterolateral fourth through eighth ribs. No pneumothorax. 2. No acute process in the abdomen and pelvis. 3. Hepatic steatosis. 4. Diverticulosis.
--- NOTE | ~2024-05-12 | CT_ITS ---
EXAMINATION: CT HEAD WITHOUT CONTRAST CT CERVICAL SPINE WITHOUT CONTRAST CLINICAL INFORMATION: Fall with head injury and neck injury COMPARISON: None. TECHNIQUE: Contiguous axial imaging was performed from the skull base to vertex without intravenous administration of contrast. In addition, helical noncontrast CT imaging was acquired through the cervical spine and source images were reviewed along with axial reconstructions and sagittal and coronal MPRs. All CT exams at this location are performed using dose optimization techniques as appropriate to a performed exam including at least one of the following: * Automated exposure control * Adjustment of the mA and/or kV according to patient size (this includes techniques or standardized protocols for targeted exams where dose is matched to indication / reason for exam; i/e/ extremities or head) * Use of iterative reconstructive technique DLP: 1701 mGy-cm FINDINGS: HEAD: No intracranial mass, hemorrhage, or midline shift is visualized. Periventricular and subcortical white matter changes seen consistent mild chronic microvascular ischemic disease. Generalized volume loss is seen. Ventricles are prominent in size due to underlying atrophy. No extra-axial collections are identified. The paranasal sinuses are well aerated. CERVICAL SPINE: There is no evidence of acute cervical spine fracture. Vertebral body height and alignment is well maintained. No pre- or paravertebral soft tissue abnormality is identified. Degenerative changes with disc space narrowing and osteophyte formation is seen from C3 through C7. Posterior facet joint are well-maintained. Limited assessment of the lung apices is unremarkable. CT/CT cervical spine wo IV con IMPRESSION: 1. No acute intracranial pathology. Mild chronic changes. 2. No CT evidence of acute cervical spine fracture or traumatic subluxation. Diffuse degenerative disc disease
--- NOTE | 2024-05-12 14:31 | ECG_ITS ---
Test Reason : fall, chest pain Blood Pressure : / mmHG Vent. Rate : 083 BPM Atrial Rate : 083 BPM P-R Int : 144 ms QRS Dur : 084 ms QT Int : 376 ms P-R-T Axes : 024 014 025 degrees QTc Int : 441 ms Normal sinus rhythm Normal ECG When compared with ECG of 11-SEP-2019 06:21, No significant change was found Referred By: Alesia Donahue Electronically Signed By:SARAH JOHNSON
[2024-05-12 14:42] VITALS: BP 140/87; PULSE 89; RESP 19; TEMP 36.6; O2SAT 97; BMI 40.3
--- NOTE | 2024-05-12 14:42 | ED.FALL ---
HPI - Fall General Chief Complaint: Fall Stated Complaint: Fall/Diff breathing chest pain Time Seen by Provider: 05/12/24 15:30 Related Data Previous Rx's ?Medication ?Instructions ?Recorded cyclobenzaprine 10 mg tablet 10 mg PO TID PRN muscle spasm #14 11/03/21 tabs hydrocodone 5 mg-acetaminophen 325 1 tab PO Q6H PRN pain #12 tabs 11/03/21 mg tablet lidocaine 5 % topical kit (Lidopac) 1 appl topical DAILY PRN pain #1 ea 11/03/21 cyclobenzaprine 10 mg tablet 10 mg PO TID PRN muscle spasm 7 02/18/22 days #21 tabs oxycodone 5 mg capsule 5 mg PO TID PRN pain 3 days #9 caps 02/18/22 prednisone 20 mg tablet 40 mg (2 x 20 mg) PO DAILY 5 days 02/18/22 #10 tabs prednisone 20 mg tablet 20 mg PO BID #10 tabs 08/22/22 Allergies Allergy/AdvReac Type Severity Reaction Status Date / Time No Known Allergies Allergy Verified 05/12/24 14:43 [facility] Past Medical History Medical History HTN (hypertension) Rheumatoid arthritis Surgical History History of foot surgery Stented coronary artery Social History Social History Patient Tobacco Use Status: Current everyday Tobacco user Advance Directives: Yes Advance Directives Information Provided: Yes Advance Directives on File: No Do you have a plan to hurt others: No Plan Physical Exam Vital Signs: Vital Signs: Last Vital Signs Temp 98.2 F 05/12/24 19:38 Pulse 72 05/12/24 19:38 Resp 16 05/12/24 19:38 BP 156/87 H 05/12/24 19:38 Pulse Ox 95 05/12/24 19:38 O2 Del Method Room Air 05/12/24 19:38 BMI result Body Mass Index 40.3 Course Course Course Narrative: This is a Rapid Medical Examination (RME) performed by Maribel Donahue PA-C in triage. Full HPI, ROS, assessment and treatment plan per primary provider in the Main ED. 74-year-old male with a history of RA, hypertension, CAD s/p stent on DAPT, COPD, who presents to the ER for evaluation of right-sided chest pain after he slipped and fell 5 ft off of a pool deck onto the cement on his right side. Denies hitting his head or losing consciousness. He is on anticoagulation. Hit his right chest wall with the fall and has been having severe shortness of breath and pain since. Difficulty taking a deep breath. Lung sounds are auscultated at the apex of the right side but he has a hard time taking a deep breath. Appears very uncomfortable in triage. Sats are in the mid 90s. Plan: EKG, labs, CT scan given high clinical suspicion for rib fracture. To go to treatment room now Reevaluation(s) Reevaluation #1: Dr. Bernardo was the primary provider for this patient, see his note for full evaluation and treatment plan Medications Administered Discontinued Medications Generic Name Dose Route Start Last Admin Trade Name Freq PRN Reason Stop Dose Admin Fentanyl 50 mcg 05/12/24 18:51 05/12/24 19:18 Fentanyl Citrate/Pf 100 Mcg/2 Ml Vial IVPUSH 05/12/24 18:52 50 mcg ONCE ONE Administration Protocol Fentanyl 50 mcg 05/12/24 20:15 05/12/24 20:42 Fentanyl Citrate/Pf 100 Mcg/2 Ml Vial IVPUSH 05/12/24 20:16 50 mcg ONCE ONE Administration Protocol Iohexol 100 ml 05/12/24 16:22 05/12/24 16:22 Iohexol 350 Mg/Ml 100 Ml Infus..Btl IV 05/12/24 16:23 85 ml ONCE ONE Administration Morphine Sulfate 4 mg 05/12/24 15:27 05/12/24 15:39 Morphine Sulfate 4 Mg/Ml Cartridge IVPUSH 05/12/24 15:28 4 mg ONCE ONE Administration Protocol Medical Decision Making Lab Data 05/12/24 15:15 05/12/24 15:15 Labs: Lab Results 05/12/24 Range/Units 15:15 WBC 12.1 H (4.8-10.8) X10*3/uL RBC 4.59 L (4.60-5.80) X10*6/uL Hgb 15.2 (14.0-18.0) g/dl Hct 44.1 (42.0-52.0) % MCV 96.1 (80.0-98.0) fL MCH 33.1 H (27.0-33.0) pg MCHC 34.5 (31.0-36.0) g/dl RDW 13.9 (11.0-16.0) % Plt Count 260 (160-400) X10*3/uL MPV 9.6 (9.4-12.4) fL Immature Gran % (Auto) 0.7 H (0.0-0.4) % Neut % (Auto) 76.7 H (45-73) % Lymph % (Auto) 13.0 L (20-40) % [place] % (Auto) 8.0 (2-11) % Eos % (Auto) 1.2 (0-4) % Baso % (Auto) 0.4 (0-2) % Lymph # (Auto) 1.6 (1.2-4.9) X10*3/uL [place] # (Auto) 1.0 (0.1-1.2) X10*3/uL Eos # (Auto) 0.2 (0.0-0.4) X10*3/uL Baso # (Auto) 0.1 (0.0-0.2) X10*3/uL Abs Immat Gran (auto) 0.09 H (0.00-0.03) X10*3/uL Absolute Neuts (auto) 9.3 H (2.0-8.3) x10*3/uL Absolute Nucleated RBC 0.000 (0.0-0.012) X10*3/uL Nucleated RBC % (auto) 0.0 (0.0-0.2) /100WBC Sodium 138 (135-145) mmol/L Potassium 4.2 (3.3-5.1) mmol/L Chloride 105 (96-108) mmol/L Carbon Dioxide 21 L (22-29) mmol/L Anion Gap 16 (12-20) BUN 15 (9-16) mg/dL Creatinine 1.35 (0.5-1.4) mg/dL Estim Creat Clear Calc 57.6 Estimated GFR 52 Random Glucose 118 H (60-115) mg/dL Calcium 9.6 (8.4-10.2) mg/dL Magnesium 1.9 (1.6-2.6) mg/dL Total Bilirubin 1.0 (0.0-1.0) mg/dL Direct Bilirubin 0.3 (0.0-0.5) mg/dL AST 33 (5-37) U/L ALT 35 (0-40) U/L Alkaline Phosphatase 79 (39-117) U/L Troponin I High Sens 5.9 (<3.5-35.0) ng/L Total Protein 7.2 (6.5-8.0) g/dL Albumin 4.3 (3.5-5.0) g/dL Discharge Plan Discharge Clinical Impression: Fracture four ribs-closed, Fall Patient Disposition: [facility] Transfer Details: trauma transfer to [facility] Prescriptions: No Action cyclobenzaprine 10 mg tablet 10 mg PO TID PRN (Reason: muscle spasm) Qty: 14 0RF Lidopac 5 % kit 1 appl topical DAILY PRN (Reason: pain) Qty: 1 0RF hydrocodone-acetaminophen 5-325 mg tablet 1 tab PO Q6H PRN (Reason: pain) Qty: 12 0RF prednisone 20 mg tablet 40 mg PO DAILY 5 Days Qty: 10 0RF oxycodone 5 mg capsule 5 mg PO TID PRN (Reason: pain) 3 Days Qty: 9 0RF Rx Instructions: side effect is drowsiness. Do not take at work or while driving. Do not take with muscle relaxers. cyclobenzaprine 10 mg tablet 10 mg PO TID PRN (Reason: muscle spasm) 7 Days Qty: 21 0RF Rx Instructions: side effect is drowsiness. Do not take at work or while driving. Do not take with oxycodone. prednisone 20 mg tablet 20 mg PO BID Qty: 10 0RF Print Language: Frisian
[2024-05-12 15:18] LABS: MANUAL DIFF FLAG NO
--- NOTE | 2024-05-12 15:21 | ECG_ITS ---
Test Reason : Fall Blood Pressure : / mmHG Vent. Rate : 074 BPM Atrial Rate : 074 BPM P-R Int : 142 ms QRS Dur : 086 ms QT Int : 398 ms P-R-T Axes : 030 004 008 degrees QTc Int : 441 ms Normal sinus rhythm Minimal voltage criteria for LVH, may be normal variant ( R in aVL ) Borderline ECG When compared with ECG of 12-MAY-2024 14:30, No significant change was found Referred By: Alesia Donahue Electronically Signed By:MAITE HENDERSON
[2024-05-12 15:32] LABS: Basophils Absolute Auto 0.1 X10*3/uL (0.0-0.2); Basophils Percent Auto 0.4 % (0-2); Eosinophils Absolute Auto 0.2 X10*3/uL (0.0-0.4); Eosinophils Percent Auto 1.2 % (0-4); Hematocrit 44.1 % (42.0-52.0); Hemoglobin 15.2 g/dl (14.0-18.0); Imm Gran Abs Auto 0.09 X10*3/uL (0.00-0.03); Imm Gran Pct Auto 0.7 % (0.0-0.4); Lymphocytes Absolute Auto 1.6 X10*3/uL (1.2-4.9); Mean Corpuscular HGB Conc 34.5 g/dl (31.0-36.0); Mean Corpuscular Hemoglobin 33.1 pg (27.0-33.0); Mean Corpuscular Volume 96.1 fL (80.0-98.0); Mean Platelet Volume 9.6 fL (9.4-12.4); Neutrophils Absolute Auto 9.3 x10*3/uL (2.0-8.3); Neutrophils Percent Auto 76.7 % (45-73); Platelet Count 260 X10*3/uL (160-400); Red Blood Count 4.59 X10*6/uL (4.60-5.80); Red Cell Distribution Width 13.9 % (11.0-16.0); White Blood Count 12.1 X10*3/uL (4.8-10.8)
[2024-05-12] MEDS: Morphine Sulfate 4 MG/ML CARTRIDGE IVPUSH (15:39)
--- NOTE | 2024-05-12 15:52 | ED.FALL ---
HPI - Fall General Chief Complaint: Fall Stated Complaint: Fall/Diff breathing chest pain Time Seen by Provider: 05/12/24 15:30 Source: patient Mode of arrival: ambulatory Limitations: no limitations History of Present Illness HPI Narrative: This is 74 years old the patient presented to the emergency department after a fall from the deck of the pool. His main complaint is right chest wall pain ,he has pain when he takes a deep breath MD complaint: fall Onset (ago): hour(s) (6) Fall from: standing Fall witnessed: no Place fall occurred: other (home from pool deck) Loss of consciousness: none Prolonged down time: no Symptoms prior to fall: none Context: tripped/slipped Location of injury: chest Severity: moderate Quality: dull Associated symptoms (after fall): denies Related Data Previous Rx's ?Medication ?Instructions ?Recorded cyclobenzaprine 10 mg tablet 10 mg PO TID PRN muscle spasm #14 11/03/21 tabs hydrocodone 5 mg-acetaminophen 325 1 tab PO Q6H PRN pain #12 tabs 11/03/21 mg tablet lidocaine 5 % topical kit (Lidopac) 1 appl topical DAILY PRN pain #1 ea 11/03/21 cyclobenzaprine 10 mg tablet 10 mg PO TID PRN muscle spasm 7 02/18/22 days #21 tabs oxycodone 5 mg capsule 5 mg PO TID PRN pain 3 days #9 caps 02/18/22 prednisone 20 mg tablet 40 mg (2 x 20 mg) PO DAILY 5 days 02/18/22 #10 tabs prednisone 20 mg tablet 20 mg PO BID #10 tabs 08/22/22 Allergies Allergy/AdvReac Type Severity Reaction Status Date / Time No Known Allergies Allergy Verified 05/12/24 14:43 Review of Systems Constitutional: Constitutional: Reports no additional constitutional complaints Eyes: Eyes: Reports no additional eye complaints Cardiovascular: Cardiovascular: Reports no additional cardiovascular complaints Neurologic: Reports system reviewed and no additional complaints, except as documented PMFSH Past Medical History Attestation statement: The following information was validated with the patient. Source: unable to obtain Medical History HTN (hypertension) Rheumatoid arthritis Surgical History History of foot surgery Stented coronary artery Social History Social History Patient Tobacco Use Status: Current everyday Tobacco user Advance Directives: Yes Advance Directives Information Provided: Yes Advance Directives on File: No Do you have a plan to hurt others: No Plan Physical Exam Vital Signs: Vital Signs: Last Vital Signs Temp 98.6 F 05/12/24 18:34 Pulse 66 05/12/24 18:34 Resp 18 05/12/24 18:34 BP 131/76 05/12/24 18:34 Pulse Ox 95 05/12/24 18:34 O2 Del Method Room Air 05/12/24 18:34 BMI result Body Mass Index 40.3 Const: General: cooperative, comfortable, no acute distress and well developed Nutritional Appearance: well nourished Orientation/consciousness: patient oriented x3 Limitations: no limitations HEENT: Head: Yes normal to inspection Face and sinus: Yes normal facial exam Mouth: Normal oral and palatal mucosa present Throat: Yes posterior oropharynx normal Neck: Neck: Yes normal visual inspection Chest: Other: Right chest wall tenderness present Chest palpation & inspection: normal inspection of the chest Resp: Effort & Inspection: normal respiratory effort Auscultation: clear to auscultation bilaterally Cardio: Jugular venous distension: no JVD Rate: regular rate Rhythm: regular rhythm GI: Inspection: Yes normal to inspection Palpation (GI): Soft to palpation, not firm and nontender Percussion: Yes normal to percussion Skin: General skin exam: no rashes or lesions noted Neuro: General: patient oriented x3 Course Reevaluation(s) Reevaluation #1: CT chest shows 4 ribs fx will speak with [facility] possible transfer Reevaluation #2: Patient was accepted in transfer the by [facility] Dr. Morgan Time: 19:05 Medications Administered Discontinued Medications Generic Name Dose Route Start Last Admin Trade Name Freq PRN Reason Stop Dose Admin Iohexol 100 ml 05/12/24 16:22 05/12/24 16:22 Iohexol 350 Mg/Ml 100 Ml Infus..Btl IV 05/12/24 16:23 85 ml ONCE ONE Administration Morphine Sulfate 4 mg 05/12/24 15:27 05/12/24 15:39 Morphine Sulfate 4 Mg/Ml Cartridge IVPUSH 08/13/24 15:28 4 mg ONCE ONE Administration Protocol Medical Decision Making Medical Decision Making [facility] Narrative: Patient presented for 5 ft fall complaining on the right chest wall pain will obtain imaging Differential Diagnosis Differential Diagnoses: The differential diagnosis associated with the presentation includes Right ribs fracture/pneumothorax/ Admission/Observation Consideration of admission/observation: Escalation of care including admission/observation considered Lab Data [facility] Lab Attestation statement: I reviewed the patient's lab results. 05/12/24 15:15 05/12/24 15:15 Labs: Lab Results 05/12/24 Range/Units 15:15 WBC 12.1 H (4.8-10.8) X10*3/uL RBC 4.59 L (4.60-5.80) X10*6/uL Hgb 15.2 (14.0-18.0) g/dl Hct 44.1 (42.0-52.0) % MCV 96.1 (80.0-98.0) fL MCH 33.1 H (27.0-33.0) pg MCHC 34.5 (31.0-36.0) g/dl RDW 13.9 (11.0-16.0) % Plt Count 260 (160-400) X10*3/uL MPV 9.6 (9.4-12.4) fL Immature Gran % (Auto) 0.7 H (0.0-0.4) % Neut % (Auto) 76.7 H (45-73) % Lymph % (Auto) 13.0 L (20-40) % [place] % (Auto) 8.0 (2-11) % Eos % (Auto) 1.2 (0-4) % Baso % (Auto) 0.4 (0-2) % Lymph # (Auto) 1.6 (1.2-4.9) X10*3/uL [place] # (Auto) 1.0 (0.1-1.2) X10*3/uL Eos # (Auto) 0.2 (0.0-0.4) X10*3/uL Baso # (Auto) 0.1 (0.0-0.2) X10*3/uL Abs Immat Gran (auto) 0.09 H (0.00-0.03) X10*3/uL Absolute Neuts (auto) 9.3 H (2.0-8.3) x10*3/uL Absolute Nucleated RBC 0.000 (0.0-0.012) X10*3/uL Nucleated RBC % (auto) 0.0 (0.0-0.2) /100WBC Sodium 138 (135-145) mmol/L Potassium 4.2 (3.3-5.1) mmol/L Chloride 105 (96-108) mmol/L Carbon Dioxide 21 L (22-29) mmol/L Anion Gap 16 (12-20) BUN 15 (9-16) mg/dL Creatinine 1.35 (0.5-1.4) mg/dL Estim Creat Clear Calc 57.6 Estimated GFR 52 Random Glucose 118 H (60-115) mg/dL Calcium 9.6 (8.4-10.2) mg/dL Magnesium 1.9 (1.6-2.6) mg/dL Total Bilirubin 1.0 (0.0-1.0) mg/dL Direct Bilirubin 0.3 (0.0-0.5) mg/dL AST 33 (5-37) U/L ALT 35 (0-40) U/L Alkaline Phosphatase 79 (39-117) U/L Troponin I High Sens 5.9 (<3.5-35.0) ng/L Total Protein 7.2 (6.5-8.0) g/dL Albumin 4.3 (3.5-5.0) g/dL Independent Interpretation I performed an independent interpretation of an: CT Scan Radiology Impression Discussion of test interpretation with radiology: I have reviewed the radiologist's reading. Critical Care Time Critical Care Time Critical Care Time: Yes Total Critical Care Time: 60 Attestation: trauma fall from 5 feet/chest trauma 4 ribs fx Discharge Plan Discharge Clinical Impression: Fracture four ribs-closed Qualifiers: Encounter type: initial encounter Laterality: right Qualified Code(s): S22.41XA - Multiple fractures of ribs, right side, initial encounter for closed fracture Fall Qualifiers: Encounter type: initial encounter Qualified Code(s): W19.XXXA - Unspecified fall, initial encounter Patient Disposition: [facility] Transfer Details: trauma transfer to [facility] Prescriptions: No Action cyclobenzaprine 10 mg tablet 10 mg PO TID PRN (Reason: muscle spasm) Qty: 14 0RF Lidopac 5 % kit 1 appl topical DAILY PRN (Reason: pain) Qty: 1 0RF hydrocodone-acetaminophen 5-325 mg tablet 1 tab PO Q6H PRN (Reason: pain) Qty: 12 0RF prednisone 20 mg tablet 40 mg PO DAILY 5 Days Qty: 10 0RF oxycodone 5 mg capsule 5 mg PO TID PRN (Reason: pain) 3 Days Qty: 9 0RF Rx Instructions: side effect is drowsiness. Do not take at work or while driving. Do not take with muscle relaxers. cyclobenzaprine 10 mg tablet 10 mg PO TID PRN (Reason: muscle spasm) 7 Days Qty: 21 0RF Rx Instructions: side effect is drowsiness. Do not take at work or while driving. Do not take with oxycodone. prednisone 20 mg tablet 20 mg PO BID Qty: 10 0RF Print Language: American
[2024-05-12 15:53] LABS: Alanine Aminotransferase 35 U/L (0-40); Albumin Level 4.3 g/dL (3.5-5.0); Alkaline Phosphatase 79 U/L (39-117); Anion Gap 16 (12-20); Aspartate Amino Transferase 33 U/L (5-37); Bilirubin Direct 0.3 mg/dL (0.0-0.5); Blood Urea Nitrogen 15 mg/dL (9-16); Calcium 9.6 mg/dL (8.4-10.2); Carbon Dioxide 21 mmol/L (22-29); Chloride 105 mmol/L (96-108); Creatinine Clr Calc Pharmacy 57.6; Estimated Glomerular Filt Rate 52; Glucose Random 118 mg/dL (60-115); Magnesium 1.9 mg/dL (1.6-2.6); Potassium 4.2 mmol/L (3.3-5.1); Sodium 138 mmol/L (135-145); Total Protein 7.2 g/dL (6.5-8.0)
[2024-05-12 16:00] LABS: Troponin-I High Sensitivity 5.9 ng/L (<3.5-35.0)
[2024-05-12] MEDS: iohexoL 350 MG/ML 100 ML INFUS..BTL IV (16:22)
[2024-05-12 16:32] VITALS: BP 138/80; PULSE 73; RESP 20; TEMP 36.7; O2SAT 97
[2024-05-12 18:34] VITALS: BP 131/76; PULSE 66; RESP 18; TEMP 37; O2SAT 95
[2024-05-12] MEDS: fentaNYL citrate/PF 100 MCG/2 ML VIAL 50 MCG IVPUSH ×2 (19:18→20:42)
[2024-05-12 19:38] VITALS: BP 156/87; PULSE 72; RESP 16; TEMP 36.8; O2SAT 95
--- NOTE | 2024-05-12 19:56 | PC.NURSE ---
2x attempt to call report to [facility] ed.
--- NOTE | 2024-05-12 20:42 | PC.NURSE ---
Pt medicated per nov. Pt ca&ox4, no signs of distress. Plan of care ongoing.
[2024-05-12 20:58] VITALS: BP 156/87; PULSE 72; RESP 16; TEMP 36.8; O2SAT 95
--- NOTE | 2024-05-12 20:59 | PC.NURSE ---
attempt to give report to [facility] ed. thorough report given to ems with times of last meds given as unable to report to [facility] ed rn.
== END 2024-05-12 21:00 | disposition short-term general hospital (02) ==
PROVIDERS: Physician Assistant; Emergency Provider Emergency Medicine; PCP Internal Medicine
DX: S22.41XA Multiple fractures of ribs, right side, initial encounter for closed fracture (principal); W17.89XA Other fall from one level to another, initial encounter; Y93.11 Activity, swimming; Y92.9 Unspecified place or not applicable; Y99.9 Unspecified external cause status
CPT/HCPCS: 36415; 70450; 71260; 72125; 74177; 80048; 80076; 83735; 84484; 85025; 93005; 96374; 96375; 96376; 99285; J2270; J3010; Q9967

== ENCOUNTER → 2024-05-12 14:31 | Outpatient (BNV) | payer MEDICARE, BC, SELFPAY | PROVIDERS: Emergency Provider Emergency Medicine; PCP Internal Medicine; Visit Provider Internal Medicine | DX: R94.31 Abnormal electrocardiogram [ECG] [EKG] (principal) | CPT/HCPCS: 93010 ==

== ENCOUNTER 2024-09-25 05:07 | Emergency (ER) | payer MEDICARE, BC, SELFPAY ==
[2024-09-25 05:09] VITALS: BP 177/104; PULSE 73; RESP 22; TEMP 36.1; O2SAT 97; BMI 42.2
[2024-09-25 07:50] VITALS: BP 192/101; PULSE 65; RESP 14; TEMP 36.6; O2SAT 95
--- NOTE | 2024-09-25 08:49 | ED_ITS ---
HPI - Back Pain/Injury General Chief Complaint: Back Pain/Injury Stated Complaint: lower back pain running into left leg Time Seen by Provider: 09/25/24 08:48 Source: patient Limitations: no limitations History of Present Illness ED Provider: Julisa Lester NP HPI Narrative: Patient is a 74-year-old male with past medical history of sciatica, rheumatoid arthritis, hypertension who presents to the emergency department for evaluation of left lower back pain that is radiating down the posterior leg. Onset was 1 week ago. He admits that the day prior to its onset he was doing excessive cleaning around the house polishing a furniture for the upcoming holiday. When he awoke the following morning he had a mild pain to his back but states it has his symptoms have progressed since. He admits to a prior injury about 40 years ago where he ?blew out L4 and L5 but never required surgery. He tried taking aspirin additional OTC NSAIDs and acetaminophen without relief. He has also trialed his TENS machine without improvement. He states that he typically benefits well from seeing a chiropractor but unfortunately they are on vacation this week. In the past he has done well with using a muscle relaxant he unfortunately does not have any at home available to him. He does arrive hypertensive today he states that he came in early in hopes that he would be in and out but was not able to take his blood pressure medications he is amenable to taking them here. He is not amenable to staying in the emergency department for further evaluation and monitoring of the blood pressure. He is asymptomatic at this time. No dizziness, lightheadedness, headaches, vision changes, neck pain, chest pain, shortness of breath. Denies recent precipitating injury, fevers, chills, burning with micturition, urinary frequency/urgency/hesitancy, bladder or bowel dysfunction, numbness or tingling of the perineum or bilateral legs. Denies any recent surgical procedures, personal history of cancer, or IV drug usage. elicited complaint: back pain Related Data Previous Rx's ?Medication ?Instructions ?Recorded cyclobenzaprine 10 mg tablet 10 mg PO TID PRN muscle spasm #14 11/03/21 tabs hydrocodone 5 mg-acetaminophen 325 1 tab PO Q6H PRN pain #12 tabs 11/03/21 mg tablet lidocaine 5 % topical kit (Lidopac) 1 appl topical DAILY PRN pain #1 ea 11/03/21 cyclobenzaprine 10 mg tablet 10 mg PO TID PRN muscle spasm 7 02/18/22 days #21 tabs oxycodone 5 mg capsule 5 mg PO TID PRN pain 3 days #9 caps 02/18/22 prednisone 20 mg tablet 40 mg (2 x 20 mg) PO DAILY 5 days 02/18/22 #10 tabs prednisone 20 mg tablet 20 mg PO BID #10 tabs 08/22/22 cyclobenzaprine 10 mg tablet 10 mg PO TID PRN muscle spasm #14 09/25/24 tabs Allergies Allergy/AdvReac Type Severity Reaction Status Date / Time No Known Allergies Allergy Verified 09/25/24 05:10 Review of Systems Review of Systems: Yes all other systems are reviewed and are negative [facility] Past Medical History Attestation statement: The following information was validated with the patient. Source: old records reviewed Medical History HTN (hypertension) Rheumatoid arthritis Surgical History History of foot surgery Stented coronary artery Social History Social History Patient Tobacco Use Status: Current everyday Tobacco user Advance Directives: Yes Advance Directives Information Provided: No Advance Directives on File: No Do you have a plan to hurt others: No Plan Physical Exam Vital Signs: Vital Signs: Last Vital Signs Temp 97.8 F 09/25/24 07:50 Pulse 65 09/25/24 07:50 Resp 14 09/25/24 07:50 BP 192/101 H 09/25/24 07:50 Pulse Ox 95 09/25/24 07:50 O2 Del Method Room Air 09/25/24 07:50 BMI result Body Mass Index 42.2 Appearance: Alert.?Oriented to person, place and time. No acute distress.?Normal affect. Eyes: Pupils equal, round and reactive to light.? ENT: Pharynx normal.?? Neck: Normal inspection.? Neck supple.?? CVS: Heart sounds normal. Normal heart rate and rhythm.? Pulses normal; bilateral radial pulses 2+, bilateral posterior tibial/dorsalis pedis pulses 2+.? Respiratory: No respiratory distress.? Lung sounds clear to auscultation bilaterally?? Abdomen: Soft and non-tender. Normoactive bowel sounds. No pulsatile mass.?? Skin: Skin warm and dry.? Normal skin color.? Normal skin turgor.?? Extremities: No lower extremity edema.? No calf ttp? Back: + moderate paraspinal muscular tenderness from lumbar region to coccyx. No CVA tenderness. No midline spinal tenderness, step-off's, or deformity. Full ROM intact in bilateral lower extremities. Straight leg test negative on right; Straight leg test positive on left. No rashes, lesions, areas of induration or fluctuance, or signs of infection noted., Neuro: Moves all extremities spontaneously. 5/5 strength in hip extension/flexion, abduction, adduction. Sensation to light touch intact bilaterally. Patellar and Achilles reflex 2+ bilaterally. No ataxia, gait normal and steady.. No focal neuro deficits. Medical Decision Making Medical Decision Making MDM Narrative: Patient is a 74-year-old male with medical history of sciatica, rheumatoid arthritis, hypertension presenting for evaluation of left lower back pain radiating down the left leg as per HPI. He does admit the pain is consistent with sciatica that he has experienced previously though it is typically on the right. It is overall unchanged but does admit that this is more severe in nature. He feels he would benefit from a chiropractor appointment but unfortunately is not able to obtain an appointment. On examination he has notab le tenderness on palpation of the left paraspinal muscles, Pain is most consistent with muscular pain associated radiculopathy, although cannot completely exclude herniated disc. On neurological exam there are no deficits. Atraumatic in nature, no acute bony tenderness, unlikely to be spinal fracture. Exam findings not consistent with cauda equina syndrome. No recent fevers, unintentional weight loss, history of IVDA, high-risk past medical history, recent surgery or lumbar puncture to suggest spinal infection, epidural abscess, malignancy. Not consistent with AAA or dissection. No genitourinary symptoms, afebrile, no CVA tenderness, unlikely urinary tract infection, pyelonephritis, renal colic. No history of nephrolithiasis/ureteral calculi. Your arrives hypertensive 177/104, did not take his blood pressure medications, asymptomatic hypertensivee is amenable to taking his home blood pressure medications. Plan for discharge home with prescription for cyclobenzaprine, and follow-up with primary care provider, and patient agreed with plan. Differential Diagnosis Differential Diagnoses: The differential diagnosis associated with the presentation includes ( see narrative above) Admission/Observation Consideration of admission/observation: Escalation of care including admission/observation considered ( see narrative above) External Record Review External record reviewed: Outpatient record Prescription Management I considered prescription management with: Pain Medication Discharge Plan Discharge Clinical Impression: Lumbar radiculopathy Patient Disposition: Home, Self-Care Instructions: Lumbar Radiculopathy (ED), Lower Back Exercises (ED) Additional Instructions: In addition to the measures you have already been taking at home I have sent a prescription for cyclobenzaprine/Flexeril muscle relaxer to the pharmacy. You may take this as prescribed has needed for pain. This medication may make you drowsy, you should not drive, drink alcohol, or work while taking this medication. As discussed, follow-up with your PCP next week with any continued symptoms. You may follow-up with your chiropractor at your discretion. Return with any new or worsening symptoms or concerns. Prescriptions: New cyclobenzaprine 10 mg tablet 10 mg PO TID PRN (Reason: muscle spasm) Qty: 14 0RF No Action cyclobenzaprine 10 mg tablet 10 mg PO TID PRN (Reason: muscle spasm) Qty: 14 0RF Lidopac 5 % kit 1 appl topical DAILY PRN (Reason: pain) Qty: 1 0RF hydrocodone-acetaminophen 5-325 mg tablet 1 tab PO Q6H PRN (Reason: pain) Qty: 12 0RF prednisone 20 mg tablet 40 mg PO DAILY 5 Days Qty: 10 0RF oxycodone 5 mg capsule 5 mg PO TID PRN (Reason: pain) 3 Days Qty: 9 0RF Rx Instructions: side effect is drowsiness. Do not take at work or while driving. Do not take with muscle relaxers. cyclobenzaprine 10 mg tablet 10 mg PO TID PRN (Reason: muscle spasm) 7 Days Qty: 21 0RF Rx Instructions: side effect is drowsiness. Do not take at work or while driving. Do not take with oxycodone. prednisone 20 mg tablet 20 mg PO BID Qty: 10 0RF Referrals: Marylu Pierre MD [Primary Care Provider] - Print Language: Swiss
[2024-09-25 09:10] VITALS: BP 192/101; PULSE 71
[2024-09-25] MEDS: Losartan Potassium 25 MG TABLET PO (09:10)
[2024-09-25] MEDS: Metoprolol Succinate ER 50 MG TAB.ER.24H PO (09:10)
--- NOTE | 2024-09-25 09:11 | PC.NURSE ---
guarded mobility with transferring to sitting and stand, gait is slow steady. medicated for HTN
[2024-09-25 09:19] VITALS: BP 192/101; PULSE 71; RESP 20; TEMP 36.4; O2SAT 97
== END 2024-09-25 09:21 | disposition home or self-care (01) ==
PROVIDERS: Emergency Provider Emergency Medicine; PCP Internal Medicine
DX: M54.16 Radiculopathy, lumbar region (principal); M79.605 Pain in left leg; I10 Essential (primary) hypertension; F17.210 Nicotine dependence, cigarettes, uncomplicated
CPT/HCPCS: 99283

== ENCOUNTER 2024-09-26 00:37 | Emergency (ER) | payer MEDICARE, BC, SELFPAY ==
[2024-09-26 00:41] VITALS: BP 170/100; PULSE 77; O2SAT 97
[2024-09-26 00:43] VITALS: BMI 42.0
[2024-09-26 01:05] VITALS: BP 152/82; PULSE 63; RESP 22; TEMP 37; O2SAT 94
[2024-09-26] MEDS: Ibuprofen 600 MG TABLET PO (01:31)
[2024-09-26] MEDS: Acetaminophen 325 MG TABLET 975 MG PO (01:31)
[2024-09-26 04:14] VITALS: BP 176/97; PULSE 66; RESP 18; TEMP 37.3; O2SAT 96
--- NOTE | 2024-09-26 05:36 | ED.EXTPRO ---
HPI - Extremity Problem General Chief complaint: Extremity Problem Stated complaint: Lower back pain shooting down to L leg Time Seen by Provider: 09/26/24 05:09 Source: patient Mode of arrival: ambulatory Limitations: no limitations History of Present Illness ED Provider: Dr. Jyoti Bhatt HPI Narrative: patient comes to the emergency room complaining of Acute on chronic sciatica pain. Patient has been previously diagnosed with sciatica. Patient states that he usually goes to his chiropractor in takes care of his pain. Patient states that because of the holidays, his chiropractor is on vacation and now he has a lot of pain. Patient denies any saddle anesthesia, denies urinary retention or incontinence. Patient states that earlier today he took acetaminophen and ibuprofen which helped quite a bit but he still has pain. Patient denies any other injuries. Related Data Previous Rx's ?Medication ?Instructions ?Recorded cyclobenzaprine 10 mg tablet 10 mg PO TID PRN muscle spasm #14 11/03/21 tabs hydrocodone 5 mg-acetaminophen 325 1 tab PO Q6H PRN pain #12 tabs 11/03/21 mg tablet lidocaine 5 % topical kit (Lidopac) 1 appl topical DAILY PRN pain #1 ea 11/03/21 cyclobenzaprine 10 mg tablet 10 mg PO TID PRN muscle spasm 7 02/18/22 days #21 tabs oxycodone 5 mg capsule 5 mg PO TID PRN pain 3 days #9 caps 02/18/22 prednisone 20 mg tablet 40 mg (2 x 20 mg) PO DAILY 5 days 02/18/22 #10 tabs prednisone 20 mg tablet 20 mg PO BID #10 tabs 08/22/22 cyclobenzaprine 10 mg tablet 10 mg PO TID PRN muscle spasm #14 09/25/24 tabs acetaminophen 500 mg tablet 1,000 mg (2 x 500 mg) PO Q6H PRN 09/26/24 pain #14 tabs ibuprofen 600 mg tablet 600 mg PO QID PRN fever or pain 09/26/24 #14 tabs tramadol 50 mg tablet 50 mg PO BID PRN pain #4 tabs 09/26/24 Allergies Allergy/AdvReac Type Severity Reaction Status Date / Time No Known Allergies Allergy Verified 09/26/24 00:58 Review of Systems Review of Systems: Constitutional : No Weight loss, No Fever, No Chills, No Night Sweats, No Fatigue, No Malaise ENT/Mouth : No Hearing loss, No Ear Pain, No Nasal Congestion, No Sinus Pain, No Hoarseness, No sore throat, No Rhinorrhea, No Swallowing Difficulty Eyes: No Eye Pain, No Swelling, No Redness, No Foreign Body, No Discharge, No Vision Changes Cardiovascular : No Chest Pain, No SOB, No Dyspnea on Exertion, No Orthopnea, No Edema, No Palpitations Respiratory : No Cough, No Sputum, No Wheezing, No Smoke Exposure, No Dyspnea Gastrointestinal : No Nausea, No Vomiting, No Diarrhea, No Constipation, No abdominal Pain, No Hematochezia, No Melena Genitourinary : no irregular bleeding, No Dysuria, No Urinary Frequency, No Hematuria, No Urinary Incontinence, No Urgency, No Flank Pain, No Urinary Flow Changes, No Hesitancy Musculoskeletal : complaining of lower back pain radiating towards the left leg all the way down to the heel. Gets worse with certain movements. No joint pain, No Myalgias, No Joint Swelling Skin : No Skin Lesions, No rash Neuro : No Weakness, No Numbness, No Paresthesias, No Loss of Consciousness, No Dizziness, No Headache Psych : No Anxiety/Panic, No Depression, No SI/HI/AH/VH, No Social Issues, Heme/Lymph: No Bruising, No Bleeding,No Lymphadenopathy Endocrine : No Polyuria, No Polydipsia, No Temperature Intolerance [facility] Past Medical History Medical History HTN (hypertension) Rheumatoid arthritis Surgical History History of foot surgery Stented coronary artery Social History Social History Patient Tobacco Use Status: Current everyday Tobacco user Smoked in Last 30 Days: Yes Use of substances other than those prescribed or required for medical reasons: No Advance Directives: No Advance Directives Information Provided: Yes Do you have a plan to hurt others: No Plan Physical Exam Vital Signs: Vital Signs: Last Vital Signs Temp 99.1 F 09/26/24 04:14 Pulse 66 09/26/24 04:14 Resp 18 09/26/24 04:14 BP 176/97 H 09/26/24 04:14 Pulse Ox 96 09/26/24 04:14 O2 Del Method Room Air 09/26/24 04:14 BMI result Body Mass Index 42.0 Const: Other: Appearance: Alert. Oriented X3. No acute distress. Eyes: Pupils equal, round and reactive to light. ENT: Pharynx normal. Neck: Normal inspection. Neck supple. No lymph nodes noted. No crepitus CVS: Normal heart rate and rhythm. Pulses normal. Normal S1 and S2 Respiratory: No respiratory distress. Breath sounds normal. No Wheezing. No rales Abdomen: Soft and nontender. No rigidity. No distention. Skin: Skin warm and dry. Normal skin color. Normal skin turgor. Back: No pain to palpation over the cervical / thoracic /lumbar spine. Patient has not positive straight leg raise test on the left Extremities: No lower extremity edema. No Lacerations. No Rash Neuro: Oriented X 3. No motor deficit. No sensory deficit. Moving all extremities. No slurred speech. CN 2 through 12 grossly intact Psych: calm, cooperative, normal affect Medications Administered Discontinued Medications Generic Name Dose Route Start Last Admin Trade Name Freq PRN Reason Stop Dose Admin Acetaminophen 975 mg 09/26/24 01:25 09/26/24 01:31 Acetaminophen 325 Mg Tablet PO 09/26/24 01:26 975 mg ONCE ONE Administration Ibuprofen 600 mg 09/26/24 01:25 09/26/24 01:31 Ibuprofen 600 Mg Tablet PO 09/26/24 01:26 600 mg ONCE ONE Administration Medical Decision Making Medical Decision Making MDM Narrative: earlier today, patient was given acetaminophen and ibuprofen, states that it helped but still having back pain. Patient was given a dose of tramadol. patient states that he has had this pain before, is recurrent, usually goes to the chiropractor and within a few days after his sessions, he is pain-free. Patient has an appointment coming up soon. Discharge Plan Discharge Clinical Impression: Sciatica Patient Disposition: Home, Self-Care Instructions: Sciatica (ED) Additional Instructions: Please follow-up with your primary care physician tomorrow. If you have any worsening or new symptoms, please return to the emergency room or call 911 Prescriptions: New tramadol 50 mg tablet 50 mg PO BID PRN (Reason: pain) Qty: 4 0RF Rx Instructions: take this medication only if Tylenol/Motrin does not help control the pain. ibuprofen 600 mg tablet 600 mg PO QID PRN (Reason: fever or pain) Qty: 14 0RF acetaminophen 500 mg tablet 1,000 mg PO Q6H PRN (Reason: pain) Qty: 14 0RF No Action cyclobenzaprine 10 mg tablet 10 mg PO TID PRN (Reason: muscle spasm) Qty: 14 0RF Lidopac 5 % kit 1 appl topical DAILY PRN (Reason: pain) Qty: 1 0RF hydrocodone-acetaminophen 5-325 mg tablet 1 tab PO Q6H PRN (Reason: pain) Qty: 12 0RF prednisone 20 mg tablet 40 mg PO DAILY 5 Days Qty: 10 0RF oxycodone 5 mg capsule 5 mg PO TID PRN (Reason: pain) 3 Days Qty: 9 0RF Rx Instructions: side effect is drowsiness. Do not take at work or while driving. Do not take with muscle relaxers. cyclobenzaprine 10 mg tablet 10 mg PO TID PRN (Reason: muscle spasm) 7 Days Qty: 21 0RF Rx Instructions: side effect is drowsiness. Do not take at work or while driving. Do not take with oxycodone. prednisone 20 mg tablet 20 mg PO BID Qty: 10 0RF cyclobenzaprine 10 mg tablet 10 mg PO TID PRN (Reason: muscle spasm) Qty: 14 0RF Print Language: Faroese
[2024-09-26] MEDS: traMADoL HCL 50 MG TABLET PO (05:41)
[2024-09-26 05:55] VITALS: BP 176/97; PULSE 66; RESP 18; TEMP 37.3; O2SAT 96
== END 2024-09-26 05:57 | disposition home or self-care (01) ==
PROVIDERS: Emergency Provider Emergency Medicine
DX: M54.42 Lumbago with sciatica, left side (principal)
CPT/HCPCS: 99283; 99284

== ENCOUNTER 2024-10-02 12:57 | Emergency (ER) | payer MEDICARE, BC, SELFPAY ==
--- NOTE | ~2024-10-02 | XR_ITS ---
CLINICAL HISTORY: low back pain 3 views lumbar spine Comparison: CR/MT/SR - XR LUMBAR SPINE 2-3V - 02/18/22 09:19 EDT Findings: This examination is mildly degraded by suboptimal patient positioning, limiting evaluation of the L5-S1 region. There is grade 1 anterolisthesis of L4 on L5. [id number]-cvzfcqgo degenerative endplate changes are present at the lumbar spine. Multilevel loss of intervertebral disc space height present at the lumbar spine. No acute fracture or dislocation injury identified. IMPRESSION: 1. No acute fracture or dislocation injury identified at the lumbar spine. 2. Multilevel degenerative changes present at the lumbar spine with redemonstration of grade 1 anterolisthesis of L4 on L5. This document has been electronically signed by: Rich Lacey MD on 10/02/2024 21:56:27
--- NOTE | ~2024-10-02 | US_ITS ---
EXAMINATION: US TRIPLEX LOWER EXTREMITY, RIGHT CLINICAL INFORMATION: Right leg pain. COMPARISON: None available. TECHNIQUE: Color-flow triplex imaging with spectral analysis and compression Doppler were performed on the right lower extremity. FINDINGS: Respiratory variation, normal compression and augmented flow are noted throughout the right lower extremity. The visualized common femoral vein, superficial femoral vein, profunda femoral vein, popliteal vein and midcalf peroneal and posterior tibial venous segments show no evidence of deep venous thrombosis. Is a small Valero's cyst measuring 4.5 x 0.9 x 2.3 cm. US/US venous duplex LE RT IMPRESSION: No evidence of deep venous thrombosis involving the right lower extremity. Electronically signed by: Moshe Laurent MD 10/02/2024 03:31 PM [facility]
[2024-10-02 13:19] VITALS: BP 174/111; PULSE 77; RESP 20; TEMP 36.5; O2SAT 96; BMI 42.0
--- NOTE | 2024-10-02 13:55 | ED.GENADULT ---
HPI - General Adult General Chief complaint: Extremity Injury, Lower Stated complaint: R leg pain Time Seen by Provider: 10/02/24 20:36 Source: patient and RN notes reviewed Limitations: no limitations History of Present Illness HPI narrative: 74-year-old male who has a history of hypertension, rheumatoid arthritis, sciatica, presents complaining of right low back pain. Patient states he was seen in the emergency department on September 25 and for sciatica. This is consistent with previous flares at that time. He trialed a muscle relaxer as well as analgesia and NSAIDs which only offered minimal relief. Patient states that he was ultimately able to see his chiropractor twice since his visits and states that he has had some improvement. At the time of his visit his symptoms were on the left low back and down his left leg. Today when he awoke the symptoms had resolved on the left leg and are now on his right low back extending down his right he reports that sharp, shooting pain. He denies any paresthesias or paralysis. No bowel incontinence but states that he has had difficulty making it to the bathroom to urinate. Patient states this has been going on for several months. He does confirm that he is able to hold his stool and in general control his urine. Related Data Previous Rx's ?Medication ?Instructions ?Recorded cyclobenzaprine 10 mg tablet 10 mg PO TID PRN muscle spasm #14 11/03/21 tabs hydrocodone 5 mg-acetaminophen 325 1 tab PO Q6H PRN pain #12 tabs 11/03/21 mg tablet lidocaine 5 % topical kit (Lidopac) 1 appl topical DAILY PRN pain #1 ea 11/03/21 cyclobenzaprine 10 mg tablet 10 mg PO TID PRN muscle spasm 7 02/18/22 days #21 tabs oxycodone 5 mg capsule 5 mg PO TID PRN pain 3 days #9 caps 02/18/22 prednisone 20 mg tablet 40 mg (2 x 20 mg) PO DAILY 5 days 02/18/22 #10 tabs prednisone 20 mg tablet 20 mg PO BID #10 tabs 08/22/22 cyclobenzaprine 10 mg tablet 10 mg PO TID PRN muscle spasm #14 09/25/24 tabs acetaminophen 500 mg tablet 1,000 mg (2 x 500 mg) PO Q6H PRN 09/26/24 pain #14 tabs ibuprofen 600 mg tablet 600 mg PO QID PRN fever or pain 09/26/24 #14 tabs tramadol 50 mg tablet 50 mg PO BID PRN pain #4 tabs 09/26/24 dexamethasone 4 mg tablet 4 mg PO BID 5 days #10 tabs 10/02/24 oxycodone 5 mg tablet 5 mg PO Q8H PRN pain, severe #10 10/02/24 tabs Allergies Allergy/AdvReac Type Severity Reaction Status Date / Time No Known Allergies Allergy Verified 10/02/24 13:24 Review of Systems Constitutional: Constitutional: Denies chills, Denies fever(s) and Denies headache(s) Eyes: Eyes: Denies change in vision and Denies other (No redness.) ENT: Denies headache(s), Denies nasal congestion, Denies nasal discharge, Denies neck pain and Denies sore throat Cardiovascular: Cardiovascular: Denies chest pain, Denies palpitations, Denies dyspnea, Denies dyspnea on exertion and Denies orthopnea Respiratory: Respiratory: Denies cough, Denies dyspnea and Denies dyspnea on exertion Gastrointestinal: Gastrointestinal: Denies abdominal pain, Denies melena, Denies hematochezia, Denies diarrhea, Denies nausea and Denies vomiting Genitourinary: Genitourinary: Denies difficulty urinating, Denies dysuria and Denies urinary urgency Musculoskeletal: Musculoskeletal: Denies muscle weakness, Denies neck pain and Denies numbness Integumentary/Breasts: Skin/Breast: Denies rash Neurologic: Denies headache(s), Denies focal weakness and Denies numbness Psychiatric: Psychiatric: Denies depression Endocrine: Endocrine: Denies palpitations [facility] Past Medical History Medical History HTN (hypertension) Rheumatoid arthritis Surgical History History of foot surgery Stented coronary artery Social History Social History Unable to assess alcohol history related to: Unknown Patient Tobacco Use Status: Current everyday Tobacco user Smoked in Last 30 Days: No Use of substances other than those prescribed or required for medical reasons: No Advance Directives: No Advance Directives Information Provided: No Do you have a plan to hurt others: No Plan Physical Exam ED Vital Signs: Vital Signs - 24 hr 10/02/24 13:19 10/02/24 20:14 10/02/24 21:54 Temperature 97.7 F 97.4 F 97.4 F Pulse Rate 77 88 80 Respiratory Rate 20 16 16 Blood Pressure 174/111 H 239/122 H 189/107 H Pulse Oximetry 96 96 96 Oxygen Delivery Method Room Air Room Air Room Air 10/02/24 22:37 10/02/24 22:40 Temperature 97.6 F Pulse Rate 75 Respiratory Rate 18 Blood Pressure 201/98 H 186/102 H Pulse Oximetry 96 Oxygen Delivery Method Room Air BMI result Body Mass Index 42.0 Const General: cooperative, alert and awake Resp Auscultation: clear to auscultation bilaterally Cardio Rate: regular rate Rhythm: regular rhythm Back/Spine/Pelvis Other: no spinous, paraspinous, or paravertebral tenderness to palpation. Orthopedic Shoe Fitter is 5/5 bilaterally. FROM all joints. Mild Right sciatic notch tenderness to palpation. Mild right lumbar region tenderness over SI joint. Patient able to stand and bear weight and ambulate with limp. No calf tenderness or pedal edema. No footdrop. Course Course Course Narrative: This is a rapid medical exam performed by Nai Sands NP: Additional HPI, ROS, PE not included below will be deferred to primary provider. Patient is a 79-year-old male with history of chronic diastolic heart failure, anemia, AAA, aortic stenosis, afib no longer anticoagulated, T2DM, COPD, ILD, CAD, HTN presenting with 2 weeks of severe right calf pain. States initially had lower back pain, which has since resolved but the leg pain has persisted. Daughter states patient has been seen and prescribed pain meds which aren't helping but that he has not had any imaging yet. Plan: labs, U/S Reevaluation(s) Reevaluation #1: 10:40 p.m. patient reports significant improvement after medications. Patient is requesting discharge home. Repeat blood pressure 186/102. Patient refusing any additional evaluation for this and states he would like to be discharged home and continue to take medications as directed. Acute process on x-ray. Patient able to ambulate at time of discharge. Medications Administered Discontinued Medications Generic Name Dose Route Start Last Admin Trade Name Freq PRN Reason Stop Dose Admin Dexamethasone Sodium Phosphate 8 mg 10/02/24 21:07 10/02/24 21:30 Dexamethasone Sod Phosphate 4 Mg/Ml Vial IM 10/02/24 21:08 8 mg ONCE ONE Administration Oxycodone HCl 5 mg 10/02/24 21:07 10/02/24 21:30 Oxycodone Hcl Immed Release 5 Mg Tablet PO 10/02/24 21:08 5 mg ONCE ONE Administration Medical Decision Making Medical Decision Making [facility] Narrative: 74-year-old male with a history of sciatica, rheumatoid arthritis and hypertension. Patient is quite uncomfortable at this time and is agreeable to analgesia, trial of oxycodone which the patient has had in the past without reaction. He also has a ride home. Patient is also agreeable to Decadron IM. Check lumbar spine x-ray to evaluate for any obvious fracture. MRI not available at this time however given the patient's symptoms lower suspicion for cauda equina. Patient however will likely need to have one as outpatient. He is agreeable to this. In addition, patient states that he has taken his hypertensive medication today that he takes in the morning. Likely elevated BP due to the patient's being uncomfortable. We will reassess once the patient came analgesia. Differential Diagnosis Differential Diagnoses: The differential diagnosis associated with the presentation includes Sciatica lumbar fracture disc herniation cauda equina; no consistent findings. Admission/Observation Consideration of admission/observation: Escalation of care including admission/observation considered Consideration for hospital admission if clinically warranted Lab Data [facility] Lab Attestation statement: I reviewed the patient's lab results. 10/02/24 16:23 10/02/24 16:23 Labs: Lab Results 10/02/24 Range/Units 16:23 WBC 9.3 (4.8-10.8) X10*3/uL RBC 4.65 (4.60-5.80) X10*6/uL Hgb 14.7 (14.0-18.0) g/dl Hct 43.9 (42.0-52.0) % MCV 94.4 (80.0-98.0) fL MCH 31.6 (27.0-33.0) pg MCHC 33.5 (31.0-36.0) g/dl RDW 14.6 (11.0-16.0) % Plt Count 275 (160-400) X10*3/uL MPV 9.7 (9.4-12.4) fL Immature Gran % (Auto) 0.8 H (0.0-0.4) % Neut % (Auto) 62.2 (45-73) % Lymph % (Auto) 23.7 (20-40) % Whitman % (Auto) 10.2 (2-11) % Eos % (Auto) 2.6 (0-4) % Baso % (Auto) 0.5 (0-2) % Lymph # (Auto) 2.2 (1.2-4.9) X10*3/uL Whitman # (Auto) 1.0 (0.1-1.2) X10*3/uL Eos # (Auto) 0.2 (0.0-0.4) X10*3/uL Baso # (Auto) 0.1 (0.0-0.2) X10*3/uL Abs Immat Gran (auto) 0.07 H (0.00-0.03) X10*3/uL Absolute Neuts (auto) 5.8 (2.0-8.3) x10*3/uL Absolute Nucleated RBC 0.000 (0.0-0.012) X10*3/uL Nucleated RBC % (auto) 0.0 (0.0-0.2) /100WBC PT 11.0 (10.9-12.4) SEC INR 0.9 (0.9-1.1) Sodium 139 (135-145) mmol/L Potassium 4.4 (3.3-5.1) mmol/L Chloride 108 (96-108) mmol/L Carbon Dioxide 24 (22-29) mmol/L Anion Gap 11 L (12-20) BUN 11 (9-16) mg/dL Creatinine 0.83 (0.5-1.4) mg/dL Estim Creat Clear Calc 95.8 Estimated GFR > 60 Random Glucose 96 (60-115) mg/dL Calcium 9.4 (8.4-10.2) mg/dL Total Bilirubin 0.6 (0.0-1.0) mg/dL AST 30 (5-37) U/L ALT 32 (0-40) U/L Alkaline Phosphatase 93 (39-117) U/L Total Protein 7.4 (6.5-8.0) g/dL Albumin 4.1 (3.5-5.0) g/dL Independent Interpretation I performed an independent interpretation of an: Plain X-Ray Radiology Impression Discussion of test interpretation with radiology: I have reviewed the radiologist's reading. Radiologist Impression: [address] [address] XRay Report Signed Patient: Juancho Hoffman MR#: [id number] : 1950 Acct:[id number] Age/Sex: 74 / M ADM Date: 10/02/24 Loc: HO.ED Attending Dr: Ordering Physician: Omar Crain Date of Service: 10/02/24 Procedure(s): XR lumbar spine 2-3V Accession Number(s): [id number] cc: Marylu Pierre MD; Omar Crain~ CLINICAL HISTORY: low back pain 3 views lumbar spine Comparison: CR/ME/SR - XR LUMBAR SPINE 2-3V - 02/18/22 09:19 EDT Findings: This examination is mildly degraded by suboptimal patient positioning, limiting evaluation of the L5-S1 region. There is grade 1 anterolisthesis of L4 on L5. Kltt-sh-haqvdmns degenerative endplate changes are present at the lumbar spine. Multilevel loss of intervertebral disc space height present at the lumbar spine. No acute fracture or dislocation injury identified. IMPRESSION: 1. No acute fracture or dislocation injury identified at the lumbar spine. 2. Multilevel degenerative changes present at the lumbar spine with redemonstration of grade 1 anterolisthesis of L4 on L5. This document has been electronically signed by: Rich Lacey MD on 10/02/2024 21:56:27 Dictated By: Rich Lacey MD Signed By: <Electronically signed by Rich Lacey MD in OV> 10/02/242156 DD/ 55 TD/TT: 10/02/242155 Supervisor Assembly: [address] [address] Ultrasound Report Signed Patient: Juancho Hoffman MR#: [id number] : 1950 Acct:[id number] Age/Sex: 74 / M ADM Date: 10/02/24 Loc: HO.ED Attending Dr: Ordering Physician: Robyn Sands NP Date of Service: 10/02/24 Procedure(s): US venous duplex LE RT Accession Number(s): [id number] cc: Physician,Unknown ; Robyn Sands NP~ EXAMINATION: US TRIPLEX LOWER EXTREMITY, RIGHT CLINICAL INFORMATION: Right leg pain. COMPARISON: None available. TECHNIQUE: Color-flow triplex imaging with spectral analysis and compression Doppler were performed on the right lower extremity. FINDINGS: Respiratory variation, normal compression and augmented flow are noted throughout the right lower extremity. The visualized common femoral vein, superficial femoral vein, profunda femoral vein, popliteal vein and midcalf peroneal and posterior tibial venous segments show no evidence of deep venous thrombosis. Is a small Valero's cyst measuring 4.5 x 0.9 x 2.3 cm. US/US venous duplex LE RT IMPRESSION: No evidence of deep venous thrombosis involving the right lower extremity. Electronically signed by: Moshe Laurent MD 10/02/2024 03:31 PM [facility] Dictated By: Moshe Laurent MD Signed By: <Electronically signed by Moshe Laurent MD in OV> 10/02/24 1531 DD/ 1411 TD/TT: 10/02/24 1420 Supervisor Assembly: ADRIANO Prescription Management I considered prescription management with: Pain Medication Chronic Conditions Patient?s care impacted by: Hypertension Discharge Plan Discharge Clinical Impression: Sciatica Qualifiers: Laterality: right Qualified Code(s): M54.31 - Sciatica, right side Hypertension Qualifiers: Hypertension type: primary hypertension Qualified Code(s): I10 - Essential (primary) hypertension Patient Disposition: Home, Self-Care Instructions: Sciatica (ED), Chronic Hypertension (ED) Additional Instructions: Continue current medications as directed. Continue your blood pressure medication as directed. Decadron as directed. Oxycodone as directed. Do not take with additional pain medication or muscle relaxers. This medication may make you drowsy. 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 Recommend outpatient MRI of your lower back Follow-up with your primary care provider. Call this week to schedule a follow-up appointment. Return to the emergency department if you have any worsening of symptoms, or any concerns. Get well soon! Prescriptions: New dexamethasone 4 mg tablet 4 mg PO BID 5 Days Qty: 10 0RF oxycodone 5 mg tablet 5 mg PO Q8H PRN (Reason: pain, severe) Qty: 10 0RF Rx Instructions: Partial Fill upon patient request. No Action cyclobenzaprine 10 mg tablet 10 mg PO TID PRN (Reason: muscle spasm) Qty: 14 0RF Lidopac 5 % kit 1 appl topical DAILY PRN (Reason: pain) Qty: 1 0RF hydrocodone-acetaminophen 5-325 mg tablet 1 tab PO Q6H PRN (Reason: pain) Qty: 12 0RF prednisone 20 mg tablet 40 mg PO DAILY 5 Days Qty: 10 0RF oxycodone 5 mg capsule 5 mg PO TID PRN (Reason: pain) 3 Days Qty: 9 0RF Rx Instructions: side effect is drowsiness. Do not take at work or while driving. Do not take with muscle relaxers. cyclobenzaprine 10 mg tablet 10 mg PO TID PRN (Reason: muscle spasm) 7 Days Qty: 21 0RF Rx Instructions: side effect is drowsiness. Do not take at work or while driving. Do not take with oxycodone. prednisone 20 mg tablet 20 mg PO BID Qty: 10 0RF tramadol 50 mg tablet 50 mg PO BID PRN (Reason: pain) Qty: 4 0RF Rx Instructions: take this medication only if Tylenol/Motrin does not help control the pain. ibuprofen 600 mg tablet 600 mg PO QID PRN (Reason: fever or pain) Qty: 14 0RF acetaminophen 500 mg tablet 1,000 mg PO Q6H PRN (Reason: pain) Qty: 14 0RF cyclobenzaprine 10 mg tablet 10 mg PO TID PRN (Reason: muscle spasm) Qty: 14 0RF Print Language: Lao
[2024-10-02 16:31] LABS: MANUAL DIFF FLAG NO
[2024-10-02 16:32] LABS: Basophils Absolute Auto 0.1 X10*3/uL (0.0-0.2); Basophils Percent Auto 0.5 % (0-2); Eosinophils Absolute Auto 0.2 X10*3/uL (0.0-0.4); Eosinophils Percent Auto 2.6 % (0-4); Hematocrit 43.9 % (42.0-52.0); Hemoglobin 14.7 g/dl (14.0-18.0); Imm Gran Abs Auto 0.07 X10*3/uL (0.00-0.03); Imm Gran Pct Auto 0.8 % (0.0-0.4); Lymphocytes Absolute Auto 2.2 X10*3/uL (1.2-4.9); Lymphocytes Percent Auto 23.7 % (20-40); Mean Corpuscular HGB Conc 33.5 g/dl (31.0-36.0); Mean Corpuscular Hemoglobin 31.6 pg (27.0-33.0); Mean Corpuscular Volume 94.4 fL (80.0-98.0); Mean Platelet Volume 9.7 fL (9.4-12.4); Monocytes Percent Auto 10.2 % (2-11); Neutrophils Absolute Auto 5.8 x10*3/uL (2.0-8.3); Neutrophils Percent Auto 62.2 % (45-73); Platelet Count 275 X10*3/uL (160-400); Red Blood Count 4.65 X10*6/uL (4.60-5.80); Red Cell Distribution Width 14.6 % (11.0-16.0); White Blood Count 9.3 X10*3/uL (4.8-10.8)
[2024-10-02 16:43] LABS: INTERNATIONAL NORM RATIO 0.9 (0.9-1.1)
[2024-10-02 16:49] LABS: Alanine Aminotransferase 32 U/L (0-40); Albumin Level 4.1 g/dL (3.5-5.0); Anion Gap 11 (12-20); Aspartate Amino Transferase 30 U/L (5-37); Bilirubin Total 0.6 mg/dL (0.0-1.0); Blood Urea Nitrogen 11 mg/dL (9-16); Calcium 9.4 mg/dL (8.4-10.2); Carbon Dioxide 24 mmol/L (22-29); Chloride 108 mmol/L (96-108); Creatinine Clr Calc Pharmacy 95.8; Estimated Glomerular Filt Rate > 60; Glucose Random 96 mg/dL (60-115); Potassium 4.4 mmol/L (3.3-5.1); Sodium 139 mmol/L (135-145); Total Protein 7.4 g/dL (6.5-8.0)
[2024-10-02 17:18] LABS: Alkaline Phosphatase 93 U/L (39-117)
[2024-10-02 20:14] VITALS: BP 239/122; PULSE 88; RESP 16; TEMP 36.3; O2SAT 96
[2024-10-02] MEDS: dexAMETHasone sod phosphate 4 MG/ML VIAL 8 MG IM (21:30)
[2024-10-02] MEDS: oxyCODONE HCl Immed Release 5 MG TABLET PO (21:30)
[2024-10-02 21:54] VITALS: BP 189/107; PULSE 80; RESP 16; TEMP 36.3; O2SAT 96
[2024-10-02 22:37] VITALS: BP 201/98; PULSE 75; RESP 18; TEMP 36.4; O2SAT 96
[2024-10-02 22:40] VITALS: BP 186/102
[2024-10-02 22:50] VITALS: BP 186/102; PULSE 75; RESP 18; TEMP 36.4; O2SAT 96
== END 2024-10-02 22:52 | disposition home or self-care (01) ==
PROVIDERS: Registered Nurse Emergency; Emergency Provider Emergency Medicine; PCP Internal Medicine
DX: M54.31 Sciatica, right side (principal); I10 Essential (primary) hypertension; M79.604 Pain in right leg; Z79.899 Other long term (current) drug therapy
CPT/HCPCS: 36415; 72100; 80053; 85025; 85610; 93971; 96372; 99284; J1100

== ENCOUNTER → 2024-10-02 13:55 | Outpatient (BNV) | payer MEDICARE, BC, SELFPAY | PROVIDERS: Visit Provider Radiology Diagnostic Radiology | DX: M79.604 Pain in right leg (principal); M71.21 Synovial cyst of popliteal space [Baker], right knee; M51.362 Other intervertebral disc degeneration, lumbar region with discogenic back pain and lower extremity pain | CPT/HCPCS: 93971 ==

== ENCOUNTER 2024-10-09 07:06 | Emergency (ER) | payer MEDICARE, BC, SELFPAY ==
[2024-10-09 07:15] VITALS: BP 173/96; PULSE 64; RESP 16; TEMP 36.4; O2SAT 96; BMI 42.0
[2024-10-09 08:52] VITALS: BP 130/94; PULSE 60; RESP 19; TEMP 36.6; O2SAT 95
[2024-10-09] MEDS: Tetracaine HCl/PF 0.5% Oph Sol 4 ML DROPS 1 DROP EYE-BOTH (10:00)
[2024-10-09] MEDS: Fluorescein Sodium STRIP 1 STRIP EYE-BOTH (10:00)
[2024-10-09 10:01] VITALS: BP 130/94; PULSE 60; RESP 19; TEMP 36.6; O2SAT 95
--- NOTE | 2024-10-09 10:27 | ED_ITS ---
HPI - Eye Problem General Chief complaint: Eye Problems Stated complaint: eye problem Time Seen by Provider: 10/09/24 09:13 Source: patient Mode of arrival: ambulatory Limitations: no limitations History of Present Illness ED Provider: JESSENIA Mueller HPI Narrative: This is a 74-year-old male presenting with left eye redness, foreign body sensation, watery left eye ongoing for the past 2-3 days. He reports a few days ago he felt like there was something in his eye since then his eye has been red, swollen, tearful and uncomfortable. He does not wear contact lenses. Denies blunt eye trauma. He denies sudden eye pain, photophobia, fevers, chills, recent illness, chest pain, shortness of breath, neck pain, nausea, vomiting, abdominal pain. Related Data Previous Rx's ?Medication ?Instructions ?Recorded cyclobenzaprine 10 mg tablet 10 mg PO TID PRN muscle spasm #14 11/03/21 tabs hydrocodone 5 mg-acetaminophen 325 1 tab PO Q6H PRN pain #12 tabs 11/03/21 mg tablet lidocaine 5 % topical kit (Lidopac) 1 appl topical DAILY PRN pain #1 ea 11/03/21 cyclobenzaprine 10 mg tablet 10 mg PO TID PRN muscle spasm 7 02/18/22 days #21 tabs oxycodone 5 mg capsule 5 mg PO TID PRN pain 3 days #9 caps 02/18/22 prednisone 20 mg tablet 40 mg (2 x 20 mg) PO DAILY 5 days 02/18/22 #10 tabs prednisone 20 mg tablet 20 mg PO BID #10 tabs 08/22/22 cyclobenzaprine 10 mg tablet 10 mg PO TID PRN muscle spasm #14 09/25/24 tabs acetaminophen 500 mg tablet 1,000 mg (2 x 500 mg) PO Q6H PRN 09/26/24 pain #14 tabs ibuprofen 600 mg tablet 600 mg PO QID PRN fever or pain 09/26/24 #14 tabs tramadol 50 mg tablet 50 mg PO BID PRN pain #4 tabs 09/26/24 dexamethasone 4 mg tablet 4 mg PO BID 5 days #10 tabs 10/02/24 oxycodone 5 mg tablet 5 mg PO Q8H PRN pain, severe #10 10/02/24 tabs erythromycin 5 mg/gram (0.5 %) eye 1 appl ophthalmic (eye) TID 5 days 10/09/24 ointment #3.5 grams Allergies Allergy/AdvReac Type Severity Reaction Status Date / Time No Known Allergies Allergy Verified 10/09/24 07:16 Review of Systems Review of Systems: Yes all other systems are reviewed and are negative [facility] Past Medical History Attestation statement: The following information was validated with the patient. Source: old records reviewed and nursing notes reviewed Medical History HTN (hypertension) Rheumatoid arthritis Surgical History History of foot surgery Stented coronary artery Social History Social History Unable to assess alcohol history related to: Unknown Patient Tobacco Use Status: Current everyday Tobacco user Advance Directives: No Advance Directives Information Provided: No Physical Exam Vital Signs: Vital Signs: Last Vital Signs Temp 97.8 F 10/09/24 10:01 Pulse 60 10/09/24 10:01 Resp 19 10/09/24 10:01 BP 130/94 H 10/09/24 10:01 Pulse Ox 95 10/09/24 10:01 O2 Del Method Room Air 10/09/24 10:01 BMI result Body Mass Index 42.0 vss Appearance: Alert.? Oriented X3.? No acute distress.? Head: Normocephalic, atraumatic, no step-offs or deformities Eyes: Pupils equal, round and reactive to light.?+ left conjunctival injection with watering of the left eye. Extraocular movements intact and pain-free. Upon fluorescein staining there is uptake right in the center overlying the pupil appears like a corneal abrasion. Negative Franklin sign. CVS: Normal heart rate and rhythm.? Pulses normal.? Respiratory: No respiratory distress.? Breath sounds normal.? Abdomen: Soft and nontender.? Skin: Skin warm and dry.? Normal skin color.? Normal skin turgor.? Extremities: No lower extremity edema.? No calf ttp. 5/5 strength to bilateral upper and lower extremities Back: No midline tenderness, no C-spine tenderness, full range of motion, no CVA tenderness bilaterally Neuro: Oriented X 3.? No motor deficit.? No sensory deficit. CN 2-12 intact Course Reevaluation(s) Reevaluation #1: Will send erythromycin ophthalmic ointment for left corneal abrasion. Educated patient on diagnosis and treatment plan, answered all question, patient verbalizes understanding. At this time patient will be discharged home, advised to return with new or worsening symptoms. Educated on worrisome signs and symptoms and when to return. At this time I feel comfortable discharge home. I did advise for him to follow up with Ophthalmology if symptoms do not improve. Time: 11:48 Medications Administered Discontinued Medications Generic Name Dose Route Start Last Admin Trade Name Gideon PRN Reason Stop Dose Admin Fluorescein Sodium 1 strip 10/09/24 09:23 10/09/24 10:00 Fluorescein Sodium Strip EYE-BOTH 10/09/24 09:24 1 strip ONCE ONE Administration Tetracaine HCl 1 drop 10/09/24 09:23 10/09/24 10:00 Tetracaine Hcl/Pf 0.5% Oph Mami 4 Ml Drops EYE-BOTH 10/09/24 09:24 1 drop ONCE ONE Administration Medical Decision Making Medical Decision Making MDM Narrative: 74-year-old male presents with left eye discomfort with the past 2-3 days Physical exam ?+ left conjunctival injection with watering of the left eye. Extraocular movements intact and pain-free. Upon fluorescein staining there is uptake right in the center overlying the pupil appears like a corneal abrasion. Negative Franklin sign. History and physical exam concerning for corneal abrasion. No signs of corneal ulcer. No signs of acute closed angle glaucoma, wet macular degeneration, orbital cellulitis Plan fluorescein stain Differential Diagnosis Differential Diagnoses: The differential diagnosis associated with the presentation includes (History and physical exam concerning for corneal abrasion. No signs of corneal ulcer. No signs of acute closed angle glaucoma, wet macular degeneration, orbital cellulitis) Admission/Observation Consideration of admission/observation: Escalation of care including admission/o bservation considered External Record Review External record reviewed: Outpatient record and Prior outpatient labs Discharge Plan Discharge Clinical Impression: Corneal abrasion Patient Disposition: Home, Self-Care Instructions: Corneal Abrasion (ED) Additional Instructions: Take your medications as prescribed. If you were prescribed antibiotics today, it is important that you take your medication to their entirety, do not skip any doses, do not finish them early. Follow-up with your primary care provider this week. Return to the emergency department with new or worsening symptoms. Such as fevers, chills, chest pain, shortness of breath, nausea, vomiting, dizziness, headache, vision changes, lethargy In case of emergency call 911 Please follow-up with an eye doctor. Prescriptions: New erythromycin 5 mg/gram (0.5 %) ointment 1 appl ophthalmic (eye) TID 5 Days Qty: 3.5 0RF No Action cyclobenzaprine 10 mg tablet 10 mg PO TID PRN (Reason: muscle spasm) Qty: 14 0RF Lidopac 5 % kit 1 appl topical DAILY PRN (Reason: pain) Qty: 1 0RF hydrocodone-acetaminophen 5-325 mg tablet 1 tab PO Q6H PRN (Reason: pain) Qty: 12 0RF prednisone 20 mg tablet 40 mg PO DAILY 5 Days Qty: 10 0RF oxycodone 5 mg capsule 5 mg PO TID PRN (Reason: pain) 3 Days Qty: 9 0RF Rx Instructions: side effect is drowsiness. Do not take at work or while driving. Do not take with muscle relaxers. cyclobenzaprine 10 mg tablet 10 mg PO TID PRN (Reason: muscle spasm) 7 Days Qty: 21 0RF Rx Instructions: side effect is drowsiness. Do not take at work or while driving. Do not take with oxycodone. prednisone 20 mg tablet 20 mg PO BID Qty: 10 0RF tramadol 50 mg tablet 50 mg PO BID PRN (Reason: pain) Qty: 4 0RF Rx Instructions: take this medication only if Tylenol/Motrin does not help control the pain. ibuprofen 600 mg tablet 600 mg PO QID PRN (Reason: fever or pain) Qty: 14 0RF acetaminophen 500 mg tablet 1,000 mg PO Q6H PRN (Reason: pain) Qty: 14 0RF dexamethasone 4 mg tablet 4 mg PO BID 5 Days Qty: 10 0RF oxycodone 5 mg tablet 5 mg PO Q8H PRN (Reason: pain, severe) Qty: 10 0RF Rx Instructions: Partial Fill upon patient request. cyclobenzaprine 10 mg tablet 10 mg PO TID PRN (Reason: muscle spasm) Qty: 14 0RF Referrals: Mark Gamez [Physician] - 3 days Interventions: ED Discharge Assessment Last Done: 10/09/24 10:01 Discharge Date/Time: 10/09/24 10:03 Print Language: Greek
== END 2024-10-09 10:03 | disposition home or self-care (01) ==
PROVIDERS: Emergency Provider Emergency Medicine; PCP Internal Medicine
DX: S05.02XA Injury of conjunctiva and corneal abrasion without foreign body, left eye, initial encounter (principal); F17.210 Nicotine dependence, cigarettes, uncomplicated; X58.XXXA Exposure to other specified factors, initial encounter; Y93.89 Activity, other specified; Y92.89 Other specified places as the place of occurrence of the external cause; Y99.8 Other external cause status
CPT/HCPCS: 99283